=== PATIENT | male | born 1975 | race Caucasian/White ===

== ENCOUNTER → 2022-02-26 09:25 | Outpatient (CLI) | payer OTHER, SELFPAY ==
[2022-02-26 09:58] LABS: Add Manual Diff / Slide Review NO; Basophils Absolute Auto 100 /uL (0-100); Eosinophils Absolute Auto 200 /uL (0-450); Eosinophils Percent Auto 2.8 % (2-4); Hematocrit 35.3 % (41-53); Hemoglobin 11.5 g/dL (13.5-17.5); Lymphocytes Absolute Auto 2400 /uL (1100-4500); Lymphocytes Percent Auto 32.5 % (25-40); Mean Corpuscular HGB Conc 32.7 % (30-36); Mean Corpuscular Hemoglobin 24.9 PG (26-34); Mean Corpuscular Volume 76.2 fL (80-100); Monocytes Absolute Auto 600 /uL (0-900); Monocytes Percent Auto 7.3 % (3-14); Neutrophils Absolute Auto 4200 /uL (1500-7000); Neutrophils Percent Auto 56.4 % (50-75); Platelet Count 287 X10^3/uL (150-400); Red Blood Cell Count 4.63 X10^6/uL (4.5-5.9); Red Cell Distribution Width 16.2 % (11.6-14.8); White Blood Cell Count 7.5 X10^3/uL (4.5-11.0)
[2022-02-26 10:01] LABS: Appearance Urine UA CLEAR; Bilirubin Urine UA NEGATIVE (NEGATIVE); Color Urine UA YELLOW; Glucose Urine UA NEGATIVE (Negative); Ketones Urine UA NEGATIVE (NEGATIVE); Leukocyte Esterase Urine UA NEGATIVE (NEGATIVE); Nitrite Urine UA NEGATIVE (Negative); Occult Blood Urine UA NEGATIVE (Negative); Protein Urine UA NEGATIVE (Negative); Urobilinogen Urine UA 0.2 E.U./dL (0.2)
[2022-02-26 10:05] LABS: Hemoglobin A1C% w Est Avg Glu 6.4 % (4.0-6.0)
[2022-02-26 10:06] LABS: BUN Creatinine Ratio 12.7 (6-22); Blood Urea Nitrogen 13 mg/dL (9-20); Calcium 9.6 mg/dL (8.4-10.2); Carbon Dioxide 35 mmol/L (22-32); Chloride 103 mmol/L (98-107); Estimated Glomerular Filt Rate > 60 mL/min (>60); Glucose 96 mg/dL (70-100); HEMOLYSIS < 15 (0-50); Potassium 4.4 mmol/L (3.4-5.1); Sodium 142 mmol/L (137-145)
[2022-02-26 10:21] LABS: Bacteria Urine Occasional (0-1); Culture Indicated Urine Cult Not Indicated; RBC Urine None Seen (0-5/HPF); Squamous Epithelial Cell Urine 0-1 /HPF (0-5/HPF); WBC Urine None Seen (0-5/HPF)
== END ==
PROVIDERS: Referring Provider Orthopaedic Surgery; Visit Provider Orthopaedic Surgery
DX: Z01.818 Encounter for other preprocedural examination (principal); Z01.812 Encounter for preprocedural laboratory examination; R73.9 Hyperglycemia, unspecified; N39.0 Urinary tract infection, site not specified
CPT/HCPCS: 36415; 80048; 81001; 83036; 85025; 93005; 93010

== ENCOUNTER → 2022-03-19 11:56 | Outpatient (CLI) | payer OTHER, SELFPAY ==
[2022-03-19 12:49] LABS: Appearance Urine UA CLEAR; Bilirubin Urine UA NEGATIVE (NEGATIVE); Color Urine UA YELLOW; Glucose Urine UA NEGATIVE (Negative); Ketones Urine UA NEGATIVE (NEGATIVE); Leukocyte Esterase Urine UA NEGATIVE (NEGATIVE); Nitrite Urine UA NEGATIVE (Negative); Occult Blood Urine UA NEGATIVE (Negative); Protein Urine UA NEGATIVE (Negative); Specific Gravity Urine UA <=1.005 (1.000-1.035); Urobilinogen Urine UA 0.2 E.U./dL (0.2); pH Urine UA 5.5 (4.5-8.0)
[2022-03-19 13:27] LABS: Bacteria Urine None Seen; Culture Indicated Urine Cult Not Indicated; RBC Urine None Seen (0-5/HPF); Squamous Epithelial Cell Urine None Seen (0-5/HPF); WBC Urine 0-1/HPF (0-5/HPF)
[2022-03-19 13:30] LABS: Add Manual Diff / Slide Review NO; Basophils Absolute Auto 100 /uL (0-100); Basophils Percent Auto 0.5 % (0-2); Eosinophils Absolute Auto 100 /uL (0-450); Eosinophils Percent Auto 0.5 % (2-4); Hematocrit 26.7 % (41-53); Hemoglobin 8.5 g/dL (13.5-17.5); Lymphocytes Absolute Auto 3900 /uL (1100-4500); Lymphocytes Percent Auto 24.2 % (25-40); Mean Corpuscular HGB Conc 31.9 % (30-36); Mean Corpuscular Hemoglobin 24.2 PG (26-34); Mean Corpuscular Volume 75.8 fL (80-100); Monocytes Absolute Auto 1800 /uL (0-900); Monocytes Percent Auto 10.9 % (3-14); Neutrophils Absolute Auto 10400 /uL (1500-7000); Neutrophils Percent Auto 63.9 % (50-75); Platelet Count 342 X10^3/uL (150-400); Red Blood Cell Count 3.52 X10^6/uL (4.5-5.9); Red Cell Distribution Width 15.8 % (11.6-14.8); White Blood Cell Count 16.3 X10^3/uL (4.5-11.0)
== END ==
PROVIDERS: Referring Provider Orthopaedic Surgery; Visit Provider Orthopaedic Surgery
DX: Z96.651 Presence of right artificial knee joint (principal)
CPT/HCPCS: 36415; 81001; 85025

== ENCOUNTER 2022-03-29 14:15 | Inpatient (IN) | payer OTHER, SELFPAY ==
[2022-03-29] VITALS (13 sets, daily range): BP systolic 97–135; BP diastolic 57–74; PULSE 67–91; RESP 16–19; TEMP 36.5–37.7; O2SAT 94–98; BMI 30.3
--- NOTE | 2022-03-29 14:32 | DI.RAD.S_ITS ---
PROCEDURE: XR CHEST 1V INDICATIONS: suspected sepsis TECHNIQUE: One view of the chest was acquired. COMPARISON: None. FINDINGS: Surgical changes and devices: None. Lungs and pleura: An incomplete inspiratory result is noted, causing a crowded appearance to the lung markings. No focal infiltrates are seen. No pneumothorax or significant pleural effusions are seen. Mediastinum: Mediastinal contours appear normal. Heart size is normal. Bones and chest wall: No suspicious bony lesions. Overlying soft tissues appear unremarkable. IMPRESSION: Low lung volumes, without an acute abnormality seen. Dictated by: Johnathan Lacy M.D. on 03/29/2022 at 14:10 Approved by: Johnathan Lacy M.D. on 03/29/2022 at 14:11
--- NOTE | 2022-03-29 14:41 | ED.SOB ---
HPI - SOB/Dyspnea <BEBE Louis - Last Filed: 03/29/22 18:25> General Chief Complaint: Shortness of Breath/Dyspnea Stated Complaint: SOB, anemia, Poss PE- ref by Inga Danielle Time Seen by Provider: 03/29/22 14:40 Source: patient and family Mode of arrival: Wheelchair Limitations: no limitations History of Present Illness HPI Narrative: 46-year-old male, never smoker, presents emergency department with fever, right leg pain and swelling, fatigue and difficulty catching his breath x2 weeks. History of a total right knee replacement on March 17 at a surgery center and was sent home that evening. Patient developed a fever of 102.8 that night that goes down to 101? with Tylenol. Patient had his knee drained the following Thursday, March 21, and then went into the emergency department shortly afterwards where he was placed on cephalexin IV and oral. Patient was placed on Xarelto for 10 days post surgery. Patient is on day 3 without the blood thinner. Patient has had a persistent fever and fatigue ever since the surgery. Per patient's spouse, history of bariatric surgery and previous need for blood transfusions. Patient does report that his stools have been dark for at least the last 3 weeks. Patient is pale and warm. Related Data Home Medications Medication Instructions Recorded Confirmed baclofen 20 mg tablet 20 mg PO QID 03/29/22 03/29/22 clonazepam 1 mg tablet 0.5 mg PO DAILY PRN Anxiety 03/29/22 03/29/22 fluconazole 100 mg tablet 200 mg PO DAILY 03/29/22 03/29/22 lamotrigine 100 mg tablet 250 mg PO DAILY 03/29/22 03/29/22 mirtazapine 30 mg tablet 30 mg PO DAILY 03/29/22 03/29/22 pantoprazole 20 mg tablet,delayed 20 mg PO DAILY 03/29/22 03/29/22 release paroxetine HCl 40 mg tablet 60 mg PO DAILY 03/29/22 03/29/22 quetiapine 25 mg tablet 25 mg PO BEDTIME 03/29/22 03/29/22 tamsulosin 0.4 mg capsule (Flomax) 0.4 mg PO DAILY 03/29/22 03/29/22 tizanidine 4 mg capsule 4 mg PO Q6HR PRN Pain (Scale Score 03/29/22 03/29/22 1-3) Allergies Allergy/AdvReac Type Severity Reaction Status Date / Time ketamine Allergy Verified 03/29/22 14:31 NSAIDS (Non-Steroidal Allergy Verified 03/29/22 14:31 Anti-Inflamma Review of Systems <BEBE Louis - Last Filed: 03/29/22 18:25> Review of Systems Narrative: Narrative: GENERAL: Endorses chills, fatigue, fever. See HPI HEENT: Denies sinus pain, ear pain, sore throat, difficulty swallowing, dizziness. RESPIRATORY: Denies cough, wheezing, sputum. Endorses shortness of breath when ambulating. CARDIOVASCULAR: Denies chest pain, palpitations. GASTROINTESTINAL: Denies nausea, vomiting, abdominal pain, diarrhea, constipation. : Denies dysuria, frequency, incontinence, hematuria, urinary retention, flank pain. MSK: Denies weakness, joint pain, or bony pain. SKIN: Denies rash, skin lesions, or pruritis. Endorses swelling of right leg. NEUROLOGIC: Denies weakness, dizziness, headache, numbness, confusion. PSYCHIATRIC: No concerning psychosocial issues. Patient History <BEBE Louis - Last Filed: 03/29/22 18:25> Medical History (Updated 03/29/22 @ 17:46 by Destini Noyola MD) Osteoarthritis Prediabetes Surgical History (Updated 03/29/22 @ 17:46 by Destini Noyola MD) History of arthroplasty of knee Social History household members: spouse Smoking Status: Never smoker alcohol intake: never Smoking Status: Never smoker Exam <BEBE Louis - Last Filed: 03/29/22 18:25> Narrative Exam Narrative: Exam Narrative: GENERAL: This is a well-nourished, well-developed patient, in mild distress HEAD: Atraumatic. Normocephalic. EYES: Pupils equal round and reactive. Extraocular motions intact. No scleral icterus, injection or drainage. ENT: Nose without bleeding, purulent drainage. Throat without erythema, tonsillar hypertrophy or exudate. Airway patent. NECK: Trachea midline. No JVD or lymphadenopathy. Nontender. CARDIOVASCULAR: Regular rate and rhythm without murmurs, peripheral pulses intact, cap refill <2 sec. RESPIRATORY: Breath sounds equal and clear bilaterally. No wheezes, rales, or rhonchi. No cough. No increased respiratory effort. No accessory muscle use. GASTROINTESTINAL: Abdomen soft, non-tender, nondistended without guarding or rebound. No suprapubic pain. MSK: Moves all extremities. Normal range of motion, no clubbing or edema. Neurovascularly intact. NEURO: A&O x 3. SKIN: Warm, dry. Seven inch surgical scar across the right knee status post total right knee replacement that is very warm but with no redness, red streaking or drainage. Initial Vital Signs Initial Vital Signs: Vital Signs Temperature 99.8 F H 03/29/22 14:25 Pulse Rate 86 03/29/22 14:25 Respiratory Rate 18 03/29/22 14:25 Blood Pressure 122/66 03/29/22 14:25 Pulse Oximetry 98 03/29/22 14:25 Oxygen Delivery Method 03/29/22 14:25 Reviewed <Louisa Serna DO - Last Filed: 03/29/22 19:46> Initial Vital Signs Initial Vital Signs: Vital Signs Temperature 99.8 F H 03/29/22 14:25 Pulse Rate 86 03/29/22 14:25 Respiratory Rate 18 03/29/22 14:25 Blood Pressure 122/66 03/29/22 14:25 Pulse Oximetry 98 03/29/22 14:25 Oxygen Delivery Method 03/29/22 14:25 Procedures <BEBE Louis - Last Filed: 03/29/22 18:25> Stool Hemoccult Time of procedure: 17:10 Hemoccult result: negative Additional Comments: via [facility] Course <BEBE Louis - Last Filed: 03/29/22 18:25> Orders Ordered: ED Orders 03/29/22 14:32 XR chest 1V Stat EKG-12 Lead Stat 03/29/22 14:54 Complete Blood Count AUTO DIFF Stat Comprehensive Metabolic Panel Stat Lactate (Lactic Acid) Stat Lipase Stat Partial Thromboplastin Time Stat Procalcitonin Stat Prothrombin Time INR Stat Type and Screen Stat transfuse [Packed Cells] Stat 03/29/22 15:16 US periph venous low extrem rt Stat 03/29/22 15:28 BNP [NT-proBNP (BNP-Adult 18+)] Stat Blood Culture Stat Troponin & CK Cardiac Panel Stat 03/29/22 15:51 COVID19 -Nasal RAPID/Pre-Proc Stat 03/29/22 17:05 CT angio chest PE protocol Stat 03/29/22 17:57 Consult to Physical Therapy Evaluate & Treat Education, smoking cessation ONGOING 03/29/22 18:39 Urinalysis and Microscopic Stat 03/30/22 05:00 Basic Metabolic Panel Routine Complete Blood Count AUTO DIFF Routine Acetaminophen (Acetaminophen 325 Mg Tablet) 650 mg PO Q6HR PRN PRN Reason: Fever/Mild Pain (1-3) Baclofen (Baclofen 10 Mg Tablet) 20 mg PO QID DONAVAN Clonazepam (Clonazepam 0.5 Mg Tablet) 0.5 mg PO DAILY PRN PRN Reason: Anxiety Fluconazole (Fluconazole 100 Mg Tablet) 200 mg PO DAILY DONAVAN Lamotrigine (Lamotrigine 100 Mg Tablet) 250 mg PO DAILY DONAVAN Mirtazapine (Mirtazapine 15 Mg Tablet) 30 mg PO DAILY DONAVAN Pantoprazole Sodium (Pantoprazole Dr 20 Mg Tablet) 20 mg PO DAILY DONAVAN Paroxetine HCl (Paroxetine 20 Mg Tablet) 60 mg PO DAILY DONAVAN Quetiapine Fumarate (Quetiapine 25 Mg Tablet) 25 mg PO BEDTIME DONAVAN Tamsulosin HCl (Tamsulosin 0.4 Mg Capsule) 0.4 mg PO DAILY DONAVAN Tizanidine HCl (Tizanidine 4 Mg Tablet) 4 mg PO Q6HR PRN PRN Reason: Pain (Scale Score 1-3) Discontinued Medications Hydromorphone HCl (Hydromorphone 1 Mg Inj) 1 mg IV NOW ONE Stop: 03/29/22 16:27 Last Admin: 03/29/22 16:32 Dose: 1 mg Documented By: AT Sodium Chloride (Normal Saline 0.9%) 1,000 mls @ 1,000 mls/hr IV BOLUS ONE Stop: 03/29/22 15:31 Last Infusion: 03/29/22 16:41 Dose: 0 mls/hr Documented By: Admin: 03/29/22 15:35 Dose: 1,000 mls/hr Documented By: KF Consultations Consultation #1: Dr. Noyola, hospitalist. Recommended we speak with Orthopedics to see if they can obtain culture results from [facility]. After discussion with Dr. Stevens, Dr. Noyola was agreeable to admission for symptomatic anemia. Consultation #2: Dr. Stevens, orthopedics, was able to pull up most recent knee culture that showed negative growth. Recommended she be admitted for symptomatic anemia. Vital Signs Vital signs: Vital Signs - 8 hr 03/29/22 14:25 03/29/22 15:08 03/29/22 15:10 Temperature 99.8 F H Pulse Rate 86 78 72 Respiratory Rate 18 16 Blood Pressure 122/66 Pulse Oximetry 98 96 95 Oxygen Delivery Method Room Air 03/29/22 15:10 03/29/22 15:30 03/29/22 16:00 Temperature Pulse Rate 76 78 Respiratory Rate 18 18 Blood Pressure 120/70 Pulse Oximetry 97 97 Oxygen Delivery Method 03/29/22 16:30 03/29/22 16:37 03/29/22 16:37 Temperature Pulse Rate 72 80 Respiratory Rate 19 18 Blood Pressure 131/74 Pulse Oximetry 94 96 Oxygen Delivery Method 03/29/22 17:00 03/29/22 17:30 Temperature Pulse Rate 78 73 Respiratory Rate 18 18 Blood Pressure Pulse Oximetry 95 94 Oxygen Delivery Method <Louisa Serna, - Last Filed: 03/29/22 19:46> Orders Ordered: ED Orders 03/29/22 14:32 XR chest 1V Stat EKG-12 Lead Stat 03/29/22 14:54 Complete Blood Count AUTO DIFF Stat Comprehensive Metabolic Panel Stat Lactate (Lactic Acid) Stat Lipase Stat Partial Thromboplastin Time Stat Procalcitonin Stat Prothrombin Time INR Stat Type and Screen Stat transfuse [Packed Cells] Stat 03/29/22 15:16 US periph venous low extrem rt Stat 03/29/22 15:28 BNP [NT-proBNP (BNP-Adult 18+)] Stat Blood Culture Stat Troponin & CK Cardiac Panel Stat 03/29/22 15:51 COVID19 -Nasal RAPID/Pre-Proc Stat 03/29/22 17:05 CT angio chest PE protocol Stat 03/29/22 17:57 Consult to Physical Therapy Evaluate & Treat Education, smoking cessation ONGOING 03/29/22 18:39 Urinalysis and Microscopic Stat 03/30/22 05:00 Basic Metabolic Panel Routine Complete Blood Count AUTO DIFF Routine Acetaminophen (Acetaminophen 325 Mg Tablet) 650 mg PO Q6HR PRN PRN Reason: Fever/Mild Pain (1-3) Baclofen (Baclofen 10 Mg Tablet) 20 mg PO QID DONAVAN Clonazepam (Clonazepam 0.5 Mg Tablet) 0.5 mg PO DAILY PRN PRN Reason: Anxiety Fluconazole (Fluconazole 100 Mg Tablet) 200 mg PO DAILY DONAAVN Lamotrigine (Lamotrigine 100 Mg Tablet) 250 mg PO DAILY DONAVAN Mirtazapine (Mirtazapine 15 Mg Tablet) 30 mg PO DAILY DONAVAN Pantoprazole Sodium (Pantoprazole Dr 20 Mg Tablet) 20 mg PO DAILY DONAVAN Paroxetine HCl (Paroxetine 20 Mg Tablet) 60 mg PO DAILY DONAVAN Quetiapine Fumarate (Quetiapine 25 Mg Tablet) 25 mg PO BEDTIME DONAVAN Tamsulosin HCl (Tamsulosin 0.4 Mg Capsule) 0.4 mg PO DAILY DONAVAN Tizanidine HCl (Tizanidine 4 Mg Tablet) 4 mg PO Q6HR PRN PRN Reason: Pain (Scale Score 1-3) Discontinued Medications Hydromorphone HCl (Hydromorphone 1 Mg Inj) 1 mg IV NOW ONE Stop: 03/29/22 16:27 Last Admin: 03/29/22 16:32 Dose: 1 mg Documented By: AT Sodium Chloride (Normal Saline 0.9%) 1,000 mls @ 1,000 mls/hr IV BOLUS ONE Stop: 03/29/22 15:31 Last Infusion: 03/29/22 16:41 Dose: 0 mls/hr Documented By: Admin: 03/29/22 15:35 Dose: 1,000 mls/hr Documented By: KF Vital Signs Vital signs: Vital Signs - 8 hr 03/29/22 14:25 03/29/22 15:08 03/29/22 15:10 Temperature 99.8 F H Pulse Rate 86 78 72 Respiratory Rate 18 16 Blood Pressure 122/66 Pulse Oximetry 98 96 95 Oxygen Delivery Method Room Air 03/29/22 15:10 03/29/22 15:30 03/29/22 16:00 Temperature Pulse Rate 76 78 Respiratory Rate 18 18 Blood Pressure 120/70 Pulse Oximetry 97 97 Oxygen Delivery Method 03/29/22 16:30 03/29/22 16:37 03/29/22 16:37 Temperature Pulse Rate 72 80 Respiratory Rate 19 18 Blood Pressure 131/74 Pulse Oximetry 94 96 Oxygen Delivery Method 03/29/22 17:00 03/29/22 17:30 Temperature Pulse Rate 78 73 Respiratory Rate 18 18 Blood Pressure Pulse Oximetry 95 94 Oxygen Delivery Method MDM - SOB/Dyspnea <BEBE Louis - Last Filed: 03/29/22 18:25> Differential Diagnosis Differential diagnosis: Likely other (PE, DVT, postoperative infection, symptomatic anemia) Lab Data Result diagrams: 03/29/22 14:54 03/29/22 14:54 Labs: Lab Results 03/29/22 03/29/22 03/29/22 Range/Units 14:54 14:54 14:54 WBC 10.9 (4.5-11.0) X10^3/uL RBC 2.99 L (4.5-5.9) X10^6/uL Hgb 7.1 L (13.5-17.5) g/dL Hct 22.3 L (41-53) % MCV 74.7 L (80-100) fL MCH 23.7 L (26-34) PG MCHC 31.8 (30-36) % RDW 15.9 H (11.6-14.8) % Plt Count 817 H (150-400) X10^3/uL Neut % (Auto) 70.5 (50-75) % Lymph % (Auto) 20.4 L (25-40) % [place] % (Auto) 6.6 (3-14) % Eos % (Auto) 1.7 L (2-4) % Baso % (Auto) 0.8 (0-2) % Neut # (Auto) 7700 H (3652-1343) /uL Lymph # (Auto) 2200 (2473-6722) /uL [place] # (Auto) 700 (0-900) /uL Eos # (Auto) 200 (0-450) /uL Baso # (Auto) 100 (0-100) /uL Platelet Estimate Increased on smear RBC Morphology Not Reportable Hypochromasia 1+ H Anisocytosis 1+ H Microcytosis 1+ H PT (10.1-12.7) SECONDS INR (0.9-1.3) APTT (26.4-36.2) SECONDS Sodium 139 (137-145) mmol/L Potassium 3.6 (3.4-5.1) mmol/L Chloride 97 L (98-107) mmol/L Carbon Dioxide 35 H (22-32) mmol/L BUN 8 L (9-20) mg/dL Creatinine 0.98 (0.66-1.25) mg/dL Estimated GFR > 60 (>60) mL/min BUN/Creatinine Ratio 8.2 (6-22) Glucose 122 H (70-100) mg/dL Lactate 1.1 (0.7-2.1) mmol/L Calcium 8.4 (8.4-10.2) mg/dL Total Bilirubin 0.2 (0.2-1.3) mg/dL AST 26 (17-59) IU/L ALT 12 (<50) IU/L Alkaline Phosphatase 118 (38-126) U/L Total Creatine Kinase (55-170) U/L CK-MB (CK-2) CK-MB (CK-2) Rel Index Troponin I (0.01-0.034) ng/mL NT-Pro-B Natriuret Pep (<125) pg/mL Total Protein 6.9 (6.3-8.2) g/dL Albumin 3.7 (3.5-5.0) g/dL Globulin 3.2 (1.7-4.1) g/dL Albumin/Globulin Ratio 1.2 (1.0-2.8) Lipase 130 (23-300) U/L Procalcitonin 0.06 (<0.5) ng/mL SARS-CoV-2 (PCR) (Negative) Blood Type Antibody Screen Crossmatch 03/29/22 03/29/22 03/29/22 Range/Units 14:54 14:54 15:28 WBC (4.5-11.0) X10^3/uL RBC (4.5-5.9) X10^6/uL Hgb (13.5-17.5) g/dL Hct (41-53) % MCV (80-100) fL MCH (26-34) PG MCHC (30-36) % RDW (11.6-14.8) % Plt Count (150-400) X10^3/uL Neut % (Auto) (50-75) % Lymph % (Auto) (25-40) % [place] % (Auto) (3-14) % Eos % (Auto) (2-4) % Baso % (Auto) (0-2) % Neut # (Auto) (8597-9169) /uL Lymph # (Auto) (7318-6575) /uL [place] # (Auto) (0-900) /uL Eos # (Auto) (0-450) /uL Baso # (Auto) (0-100) /uL Platelet Estimate RBC Morphology Hypochromasia Anisocytosis Microcytosis PT 13.0 H (10.1-12.7) SECONDS INR 1.2 (0.9-1.3) APTT 41 H (26.4-36.2) SECONDS Sodium (137-145) mmol/L Potassium (3.4-5.1) mmol/L Chloride (98-107) mmol/L Carbon Dioxide (22-32) mmol/L BUN (9-20) mg/dL Creatinine (0.66-1.25) mg/dL Estimated GFR (>60) mL/min BUN/Creatinine Ratio (6-22) Glucose (70-100) mg/dL Lactate (0.7-2.1) mmol/L Calcium (8.4-10.2) mg/dL Total Bilirubin (0.2-1.3) mg/dL AST (17-59) IU/L ALT (<50) IU/L Alkaline Phosphatase (38-126) U/L Total Creatine Kinase 95 (55-170) U/L CK-MB (CK-2) TNP CK-MB (CK-2) Rel Index TNP Troponin I < 0.012 (0.01-0.034) ng/mL NT-Pro-B Natriuret Pep 575 H (<125) pg/mL Total Protein (6.3-8.2) g/dL Albumin (3.5-5.0) g/dL Globulin (1.7-4.1) g/dL Albumin/Globulin Ratio (1.0-2.8) Lipase (23-300) U/L Procalcitonin (<0.5) ng/mL SARS-CoV-2 (PCR) (Negative) Blood Type A Positive Antibody Screen Negative Crossmatch See Detail 03/29/22 Range/Units 15:51 WBC (4.5-11.0) X10^3/uL RBC (4.5-5.9) X10^6/uL Hgb (13.5-17.5) g/dL Hct (41-53) % MCV (80-100) fL MCH (26-34) PG MCHC (30-36) % RDW (11.6-14.8) % Plt Count (150-400) X10^3/uL Neut % (Auto) (50-75) % Lymph % (Auto) (25-40) % [place] % (Auto) (3-14) % Eos % (Auto) (2-4) % Baso % (Auto) (0-2) % Neut # (Auto) (5003-0069) /uL Lymph # (Auto) (2906-9249) /uL [place] # (Auto) (0-900) /uL Eos # (Auto) (0-450) /uL Baso # (Auto) (0-100) /uL Platelet Estimate RBC Morphology Hypochromasia Anisocytosis Microcytosis PT (10.1-12.7) SECONDS INR (0.9-1.3) APTT (26.4-36.2) SECONDS Sodium (137-145) mmol/L Potassium (3.4-5.1) mmol/L Chloride (98-107) mmol/L Carbon Dioxide (22-32) mmol/L BUN (9-20) mg/dL Creatinine (0.66-1.25) mg/dL Estimated GFR (>60) mL/min BUN/Creatinine Ratio (6-22) Glucose (70-100) mg/dL Lactate (0.7-2.1) mmol/L Calcium (8.4-10.2) mg/dL Total Bilirubin (0.2-1.3) mg/dL AST (17-59) IU/L ALT (<50) IU/L Alkaline Phosphatase (38-126) U/L Total Creatine Kinase (55-170) U/L CK-MB (CK-2) CK-MB (CK-2) Rel Index Troponin I (0.01-0.034) ng/mL NT-Pro-B Natriuret Pep (<125) pg/mL Total Protein (6.3-8.2) g/dL Albumin (3.5-5.0) g/dL Globulin (1.7-4.1) g/dL Albumin/Globulin Ratio (1.0-2.8) Lipase (23-300) U/L Procalcitonin (<0.5) ng/mL SARS-CoV-2 (PCR) Negative (Negative) Blood Type Antibody Screen Crossmatch Imaging Data US - DVT: Radiologist's Impression: [address] [address] Ultrasound Report Signed Patient: Lefty Valerio MR#: [id number] : 1975 Acct:[id number] Age/Sex: 46 / M Date of Service: 03/29/22 Loc: ED Accession Number: [id number] ?? Procedure: US periph venous low extrem rt Ordering Provider: Romeo Tony PROCEDURE:? US PERIPH VENOUS LOW EXTREM RT ? INDICATIONS:? r/o dvt. Hx of total knee replacement. ? TECHNIQUE:? Real-time imaging, as well as color and pulse Doppler interrogation, were performed of the lower extremity deep veins from the inguinal ligament to the popliteal fossa.? ? COMPARISON:? [facility], CR, XR CHEST 1V, 03/29/2022, 14:35.? [facility] Outside Film, US, US VENOUS LOWER EXTREMITY DOPPLER RIGHT, 03/22/2022, 12:04. ? FINDINGS:? The common femoral, femoral and popliteal veins are normally compressible, and free of intraluminal thrombus.? Color and pulse Doppler demonstrate normal phasic intraluminal flow.? There is normal augmentation response to distal compression maneuver. ? ? IMPRESSION:? ? Negative for deep venous thrombosis. ? ? Dictated by: Johnathan Lacy M.D. on 03/29/2022 at 15:53 ? ? Approved by: Johnathan Lacy M.D. on 03/29/2022 at 15:54 ? Chest x-ray: Radiologist's Impression: [address] [address] XRay Report Signed Patient: Lefty Valerio MR#: [id number] : 1975 Acct:[id number] Age/Sex: 46 / M Date of Service: 03/29/22 Loc: ED Accession Number: [id number] ?? Procedure: XR chest 1V Ordering Provider: Louisa Serna D.O. PROCEDURE:? XR CHEST 1V ? INDICATIONS:? suspected sepsis ? TECHNIQUE:? One view of the chest was acquired.? ? COMPARISON:? None. ? FINDINGS:? ? Surgical changes and devices:? None.? ? Lungs and pleura:? An incomplete inspiratory result is noted, causing a crowded appearance to the lung markings.? No focal infiltrates are seen.? No pneumothorax or significant pleural effusions are seen. ? ? Mediastinum:? Mediastinal contours appear normal.? Heart size is normal.? ? Bones and chest wall:? No suspicious bony lesions.? Overlying soft tissues appear unremarkable.? IMPRESSION:? Low lung volumes, without an acute abnormality seen. ? ? Dictated by: Johnathan Lacy M.D. on 03/29/2022 at 14:10 ? ? Approved by: Johnathan Lacy M.D. on 03/29/2022 at 14:11 ? ECG Data Attestation: I personally reviewed and interpreted this ECG as follows: Interpretation: NSR Rate of 73 Normal [place] intervals MDM Narrative Medical decision making narrative: 46-year-old male presents emergency department with right leg pain and swelling secondary to a total knee replacement on March 17. Patient has been experiencing fevers and difficulty breathing with exertion ever since. Chest x-ray was normal. Ultrasound of right leg to rule out DVT was negative. Labs reveal anemai and elevated PT/PTT. Patient reports dark stools x3 weeks and has just completed 10 days of Xarelto, postoperatively, 3 days ago. Guaiac was negative. Patient was given 1 mg of Dilaudid to aid in the discomfort for the ultrasound. Consultation with Dr. Stevens of Orthopedics and Dr. Noyola, hospitalist. CTA ordered to rule out PE and patient to be admitted for symptomatic anemia. <Louisa Serna, DO - Last Filed: 03/29/22 19:46> Lab Data Labs: Lab Results 03/29/22 03/29/22 03/29/22 Range/Units 14:54 14:54 14:54 WBC 10.9 (4.5-11.0) X10^3/uL RBC 2.99 L (4.5-5.9) X10^6/uL Hgb 7.1 L (13.5-17.5) g/dL Hct 22.3 L (41-53) % MCV 74.7 L (80-100) fL MCH 23.7 L (26-34) PG MCHC 31.8 (30-36) % RDW 15.9 H (11.6-14.8) % Plt Count 817 H (150-400) X10^3/uL Neut % (Auto) 70.5 (50-75) % Lymph % (Auto) 20.4 L (25-40) % [place] % (Auto) 6.6 (3-14) % Eos % (Auto) 1.7 L (2-4) % Baso % (Auto) 0.8 (0-2) % Neut # (Auto) 7700 H (3431-6933) /uL Lymph # (Auto) 2200 (0904-4278) /uL [place] # (Auto) 700 (0-900) /uL Eos # (Auto) 200 (0-450) /uL Baso # (Auto) 100 (0-100) /uL Platelet Estimate Increased on smear RBC Morphology Not Reportable Hypochromasia 1+ H Anisocytosis 1+ H Microcytosis 1+ H PT (10.1-12.7) SECONDS INR (0.9-1.3) APTT (26.4-36.2) SECONDS Sodium 139 (137-145) mmol/L Potassium 3.6 (3.4-5.1) mmol/L Chloride 97 L (98-107) mmol/L Carbon Dioxide 35 H (22-32) mmol/L BUN 8 L (9-20) mg/dL Creatinine 0.98 (0.66-1.25) mg/dL Estimated GFR > 60 (>60) mL/min BUN/Creatinine Ratio 8.2 (6-22) Glucose 122 H (70-100) mg/dL Lactate 1.1 (0.7-2.1) mmol/L Calcium 8.4 (8.4-10.2) mg/dL Total Bilirubin 0.2 (0.2-1.3) mg/dL AST 26 (17-59) IU/L ALT 12 (<50) IU/L Alkaline Phosphatase 118 (38-126) U/L Total Creatine Kinase (55-170) U/L CK-MB (CK-2) CK-MB (CK-2) Rel Index Troponin I (0.01-0.034) ng/mL NT-Pro-B Natriuret Pep (<125) pg/mL Total Protein 6.9 (6.3-8.2) g/dL Albumin 3.7 (3.5-5.0) g/dL Globulin 3.2 (1.7-4.1) g/dL Albumin/Globulin Ratio 1.2 (1.0-2.8) Lipase 130 (23-300) U/L Procalcitonin 0.06 (<0.5) ng/mL SARS-CoV-2 (PCR) (Negative) Blood Type Antibody Screen Crossmatch 03/29/22 03/29/22 03/29/22 Range/Units 14:54 14:54 15:28 WBC (4.5-11.0) X10^3/uL RBC (4.5-5.9) X10^6/uL Hgb (13.5-17.5) g/dL Hct (41-53) % MCV (80-100) fL MCH (26-34) PG MCHC (30-36) % RDW (11.6-14.8) % Plt Count (150-400) X10^3/uL Neut % (Auto) (50-75) % Lymph % (Auto) (25-40) % [place] % (Auto) (3-14) % Eos % (Auto) (2-4) % Baso % (Auto) (0-2) % Neut # (Auto) (9844-6690) /uL Lymph # (Auto) (0183-1085) /uL [place] # (Auto) (0-900) /uL Eos # (Auto) (0-450) /uL Baso # (Auto) (0-100) /uL Platelet Estimate RBC Morphology Hypochromasia Anisocytosis Microcytosis PT 13.0 H (10.1-12.7) SECONDS INR 1.2 (0.9-1.3) APTT 41 H (26.4-36.2) SECONDS Sodium (137-145) mmol/L Potassium (3.4-5.1) mmol/L Chloride (98-107) mmol/L Carbon Dioxide (22-32) mmol/L BUN (9-20) mg/dL Creatinine (0.66-1.25) mg/dL Estimated GFR (>60) mL/min BUN/Creatinine Ratio (6-22) Glucose (70-100) mg/dL Lactate (0.7-2.1) mmol/L Calcium (8.4-10.2) mg/dL Total Bilirubin (0.2-1.3) mg/dL AST (17-59) IU/L ALT (<50) IU/L Alkaline Phosphatase (38-126) U/L Total Creatine Kinase 95 (55-170) U/L CK-MB (CK-2) TNP CK-MB (CK-2) Rel Index TNP Troponin I < 0.012 (0.01-0.034) ng/mL NT-Pro-B Natriuret Pep 575 H (<125) pg/mL Total Protein (6.3-8.2) g/dL Albumin (3.5-5.0) g/dL Globulin (1.7-4.1) g/dL Albumin/Globulin Ratio (1.0-2.8) Lipase (23-300) U/L Procalcitonin (<0.5) ng/mL SARS-CoV-2 (PCR) (Negative) Blood Type A Positive Antibody Screen Negative Crossmatch See Detail 03/29/22 Range/Units 15:51 WBC (4.5-11.0) X10^3/uL RBC (4.5-5.9) X10^6/uL Hgb (13.5-17.5) g/dL Hct (41-53) % MCV (80-100) fL MCH (26-34) PG MCHC (30-36) % RDW (11.6-14.8) % Plt Count (150-400) X10^3/uL Neut % (Auto) (50-75) % Lymph % (Auto) (25-40) % [place] % (Auto) (3-14) % Eos % (Auto) (2-4) % Baso % (Auto) (0-2) % Neut # (Auto) (0472-6198) /uL Lymph # (Auto) (3944-7109) /uL [place] # (Auto) (0-900) /uL Eos # (Auto) (0-450) /uL Baso # (Auto) (0-100) /uL Platelet Estimate RBC Morphology Hypochromasia Anisocytosis Microcytosis PT (10.1-12.7) SECONDS INR (0.9-1.3) APTT (26.4-36.2) SECONDS Sodium (137-145) mmol/L Potassium (3.4-5.1) mmol/L Chloride (98-107) mmol/L Carbon Dioxide (22-32) mmol/L BUN (9-20) mg/dL Creatinine (0.66-1.25) mg/dL Estimated GFR (>60) mL/min BUN/Creatinine Ratio (6-22) Glucose (70-100) mg/dL Lactate (0.7-2.1) mmol/L Calcium (8.4-10.2) mg/dL Total Bilirubin (0.2-1.3) mg/dL AST (17-59) IU/L ALT (<50) IU/L Alkaline Phosphatase (38-126) U/L Total Creatine Kinase (55-170) U/L CK-MB (CK-2) CK-MB (CK-2) Rel Index Troponin I (0.01-0.034) ng/mL NT-Pro-B Natriuret Pep (<125) pg/mL Total Protein (6.3-8.2) g/dL Albumin (3.5-5.0) g/dL Globulin (1.7-4.1) g/dL Albumin/Globulin Ratio (1.0-2.8) Lipase (23-300) U/L Procalcitonin (<0.5) ng/mL SARS-CoV-2 (PCR) Negative (Negative) Blood Type Antibody Screen Crossmatch ECG Data Interpretation: NSR Rate of 73 Normal [place] intervals Sinus rhythm rate of 73 P 144 QRS 88 QTC 4-5. No acute ST changes appreciated. Discharge Plan Departure Patient Disposition: Admitted As Inpatient Clinical Impression: Dyspnea Admit Date/Time: 03/29/22 17:56 Admit Provider: Destini Noyola <Louisa Serna, DO - Last Filed: 03/29/22 19:46> Cosign ED Attending Cosignature Attestation: Mid-level case was discussed. Patient appears to have potential GI bleed was recently on Xarelto. Also has infection swelling of lower extremity post knee surgery with not improvement on oral antibiotics, DVT ultrasound was obtained is negative. Had been sent by ortho for rule out PE but concern for other multiple medical issues and discussed with hospitalist who is accepts.
--- NOTE | 2022-03-29 15:16 | DI.US.S_ITS ---
PROCEDURE: US PERIPH VENOUS LOW EXTREM RT INDICATIONS: r/o dvt. Hx of total knee replacement. TECHNIQUE: Real-time imaging, as well as color and pulse Doppler interrogation, were performed of the lower extremity deep veins from the inguinal ligament to the popliteal fossa. COMPARISON: [facility], CR, XR CHEST 1V, 03/29/2022, 14:35. [facility] Outside Film, US, US VENOUS LOWER EXTREMITY DOPPLER RIGHT, 03/22/2022, 12:04. FINDINGS: The common femoral, femoral and popliteal veins are normally compressible, and free of intraluminal thrombus. Color and pulse Doppler demonstrate normal phasic intraluminal flow. There is normal augmentation response to distal compression maneuver. IMPRESSION: Negative for deep venous thrombosis. Dictated by: Johnathan Lacy M.D. on 03/29/2022 at 15:53 Approved by: Johnathan Lcay M.D. on 03/29/2022 at 15:54
[2022-03-29 15:19] LABS: Basophils Absolute Auto 100 /uL (0-100); Basophils Percent Auto 0.8 % (0-2); Eosinophils Absolute Auto 200 /uL (0-450); Eosinophils Percent Auto 1.7 % (2-4); Hematocrit 22.3 % (41-53); Hemoglobin 7.1 g/dL (13.5-17.5); Lymphocytes Absolute Auto 2200 /uL (1100-4500); Lymphocytes Percent Auto 20.4 % (25-40); Mean Corpuscular HGB Conc 31.8 % (30-36); Mean Corpuscular Hemoglobin 23.7 PG (26-34); Mean Corpuscular Volume 74.7 fL (80-100); Monocytes Absolute Auto 700 /uL (0-900); Monocytes Percent Auto 6.6 % (3-14); Neutrophils Absolute Auto 7700 /uL (1500-7000); Neutrophils Percent Auto 70.5 % (50-75); Platelet Count 817 X10^3/uL (150-400); Red Blood Cell Count 2.99 X10^6/uL (4.5-5.9); Red Cell Distribution Width 15.9 % (11.6-14.8); White Blood Cell Count 10.9 X10^3/uL (4.5-11.0)
[2022-03-29 15:24] LABS: INR 1.2 (0.9-1.3)
[2022-03-29 15:26] LABS: PTT Partial Thromboplastin Tim 41 SECONDS (26.4-36.2)
[2022-03-29 15:27] LABS: Add Manual Diff / Slide Review SLIDE REVIEW
[2022-03-29 15:29] LABS: Alanine Aminotransferase 12 IU/L (<50); Albumin 3.7 g/dL (3.5-5.0); Albumin Globulin Ratio 1.2 (1.0-2.8); Alkaline Phosphatase 118 U/L (38-126); Aspartate Aminotransferase 26 IU/L (17-59); BUN Creatinine Ratio 8.2 (6-22); Bilirubin Total 0.2 mg/dL (0.2-1.3); Blood Urea Nitrogen 8 mg/dL (9-20); Calcium 8.4 mg/dL (8.4-10.2); Carbon Dioxide 35 mmol/L (22-32); Chloride 97 mmol/L (98-107); Estimated Glomerular Filt Rate > 60 mL/min (>60); Globulin 3.2 g/dL (1.7-4.1); Glucose 122 mg/dL (70-100); HEMOLYSIS < 15 (0-50); Lipase 130 U/L (23-300); Potassium 3.6 mmol/L (3.4-5.1); Sodium 139 mmol/L (137-145); Total Protein 6.9 g/dL (6.3-8.2)
[2022-03-29 15:30] LABS: Lactate (Lactic Acid) 1.1 mmol/L (0.7-2.1)
[2022-03-29] MEDS: SODIUM CHLORIDE 0.9% 1,000 ML 1000 ML IV (15:35)
[2022-03-29 15:40] LABS: Hypochromasia 1+; Platelet Estimate Increased on smear
[2022-03-29 15:41] LABS: Anisocytosis 1+; Microcytosis 1+
[2022-03-29 15:46] LABS: Creatine Kinase 95 U/L (55-170)
[2022-03-29 15:46] LABS: Procalcitonin 0.06 ng/mL (<0.5)
[2022-03-29 15:59] LABS: NT-proBNP (BNP-Adult 18+) 575 pg/mL (<125); Troponin I < 0.012 ng/mL (0.01-0.034)
[2022-03-29 16:25] LABS: COVID19 -Nasal RAPID Negative (Negative)
[2022-03-29] MEDS: HYDROMORPHONE 1 MG INJ IV (16:32)
--- NOTE | 2022-03-29 17:05 | DI.CT.S_ITS ---
PROCEDURE: CT ANGIO CHEST PE PROTOCOL INDICATIONS: dyspnea r/o pe TECHNIQUE: After the administration of intravenous contrast, 2 mm thick sections acquired from the pulmonary apices to the posterior costophrenic angles. 3-dimensional maximum intensity projection (MIP) coronal and sagittal reformats were then acquired through the thorax. For radiation dose reduction, the following was used: automated exposure control, adjustment of mA and/or kV according to patient size. COMPARISON: None. FINDINGS: Image quality: Excellent. Pulmonary arteries: Pulmonary arteries are normal in size, and demonstrate no intraluminal filling defects to suggest central pulmonary embolism. Lungs and pleura: Numerous bilateral areas of nodular consolidation and ground-glass airspace opacity consistent with multifocal infection. Mediastinum: Heart size is normal, without pericardial effusion. No mediastinal or hilar adenopathy. Thoracic aorta is normal in caliber and enhancement. Esophagus is normal in caliber, without hiatal hernia. Bones and chest wall: No suspicious bony lesions. Ribs and thoracic spine appear intact throughout. No axillary or supraclavicular adenopathy. Abdomen: Visualized upper abdominal solid organs appear normal in the early arterial phase of enhancement. IMPRESSION: Multifocal pneumonia. No pulmonary embolism. Dictated by: Edmund Wayne M.D. on 03/29/2022 at 20:27 Approved by: Edmund Wayne M.D. on 03/29/2022 at 20:29
--- NOTE | 2022-03-29 17:40 | P.HP_ITS ---
History of Present Illness History of Present Illness Date Patient Seen: 03/29/22 Chief complaint: SOB, anemia, Poss PE- ref by Inga Danielle Narrative: 46-year-old gentleman with class 1 obesity status post prior bariatric surgery, previous C3 through 7 laminectomy/fusion for spinal cord injury, complicated by postop fungal infection now on daily suppressive fluconazole therapy, underwent right TKA on March 17 at an outpatient surgery center presented to the emergency department today complaining of right leg pain, swelling, fatigue, and shortness of breath over the last 2 weeks. He reports that on postoperative day 0, he did develop a fever to 102.8?. He received Tylenol with improvement down to 101?. Due to her previous gastric bypass, he cannot take aspirin, therefore his orthopedic surgeon recommended Xarelto. He states he has previously used Lovenox postoperatively. He has had significant pain, swelling, and warmth to the knee since surgery. He was seen at the [place] emergency department on March 19. He was given IV antibiotics there and given oral Keflex prescription at discharge. They did perform a duplex ultrasound ruled out DVT at that time. Patient subsequently followed up with his Orthopedic surgeon Dr. Danielle on March 27. At time, she performed a joint aspiration. She refilled the Keflex and encouraged him to continue taking the antibiotics. Cultures have remained negative. At the time of that visit, she recommended discontinuation of the Xarelto. At this point, his last dose was on ThursdayMarch 26. When he was seen in her office, there was concern about his symptomatic anemia and potential need for transfusion. Patient and also questioned whether he could have fungal infection in the knee joint given his previous history of fungal infection in his spine hardware. Dr. Danielle was evidently going to look into some additional fungal testing, but they are uncertain if anything was accomplished. He returned to the emergency department today due to progressive shortness of breath, concern for pulmonary embolus, and anemia. Prior to surgery, hemoglobin was 11.5. On March 19 that had decreased to 8.5. Today it was down to 7.1. Platelet count has increased from 342 on March 19 to 817 today. Patient reports he has had progressive fatigue, weakness, and lightheadedness. His knee has remained extremely painful which has limited his ability to mobilize. He and his report he has had fevers since surgery ranging from 99.6-101. Patient notes that his knee is about the same as it was a week ago. He denies any worsening pain, erythema, induration. reports his temperature was 101? today. With regard to anemia, he did require prior transfusion at [facility] in [place] in 2020. Was felt at that time his anemia was related to his prior gastric bypass. Upper endoscopy was negative but they had an inadequate prep for colonoscopy. He was guaiac negative at that time. He was also guaiac- negative in the emergency department today. He denies any black or tarry sto ols. He has not had any chest pain, nausea, vomiting, abdominal pain. He has been having some loose stools. Leading up to surgery, patient states he has had bilateral knee pain for years. He was having falls prior to surgery which was putting his cervical spine at risk. Ultimately, the decision was made to pursue knee replacement secondary to his instability issues in pain. Patient History Medical History (Updated 03/29/22 @ 17:46 by Destini Noyola MD) Osteoarthritis Prediabetes Surgical History (Updated 03/29/22 @ 17:46 by Destini Noyola MD) History of arthroplasty of knee Comment: Additional past medical history: Spinal cord injury in 2019 requiring a C3 through C7 laminectomy/fusion. He developed a postop fungal infection remained hospitalized for 3 and half weeks. He remains on daily suppressive oral fluconazole. He does follow infectious disease Class 3 obesity status post gastric bypass surgery in 2010, complicated by some nutritional deficiencies Chronic anemia felt to be secondary to gastric bypass/nutritional deficiencies Intermittent asthma Osteoarthritis Family & Social History Social History: Family history: Mother and father have diabetes Mother and father have hypertension Other cancer Mother has thyroid disease Social history: Patient is . He is a former smoker, 1 pack per day times 20 years, quit in 2010. No recreational drug use. No significant alcohol use. Safety & Behavioral: Feels Safe in Current Yes Environment Tobacco & Substance use: Smoking Status Never smoker Meds Home Medications and Allergies Allergies Allergy/AdvReac Type Severity Reaction Status Date / Time ketamine Allergy Verified 03/29/22 14:31 NSAIDS (Non-Steroidal Allergy Verified 03/29/22 14:31 Anti-Inflamma Review of Systems Review of Systems Narrative: All other systems were reviewed negative Exam Vital Signs (past 8 hours): - 03/29/22 14:25 03/29/22 15:08 03/29/22 15:10 Temperature 99.8 F H Pulse Rate 86 78 72 Respiratory Rate 18 16 Blood Pressure 122/66 Pulse Oximetry 98 96 95 Oxygen Delivery Method Room Air 03/29/22 15:10 03/29/22 15:30 03/29/22 16:00 Temperature Pulse Rate 76 78 Respiratory Rate 18 18 Blood Pressure 120/70 Pulse Oximetry 97 97 Oxygen Delivery Method 03/29/22 16:30 03/29/22 16:37 03/29/22 16:37 Temperature Pulse Rate 72 80 Respiratory Rate 19 18 Blood Pressure 131/74 Pulse Oximetry 94 96 Oxygen Delivery Method 03/29/22 17:00 03/29/22 17:30 Temperature Pulse Rate 78 73 Respiratory Rate 18 18 Blood Pressure Pulse Oximetry 95 94 Oxygen Delivery Method Oxygen Delivery Method Room Air Narrative Exam Narrative: GEN: Maria E middle-aged male, Alert and oriented x3, appears uncomfortable HEENT: Normocephalic, face symmetric, pupils equal round reactive to light, extraocular movements intact, sclerae anicteric, conjunctiva pale but clear, nares patent, oropharynx reveals an intact soft and hard palate with moist mucous membranes, dentition is fair NECK: Supple, no lymphadenopathy, thyroid without enlargement or nodularity, carotids no bruits CHEST: Respiratory excursions symmetric, mildly diminished in the bases but clear to auscultation bilaterally CV: Regular rate and rhythm, no murmurs, rubs, gallops, PMI cannot be palpated ABD: Soft, nontender, nondistended, bowel sounds present in all 4 quadrants, body habitus limits exam EXTR: Warm, well perfused, no clubbing/cyanosis; right knee reveals a intact surgical incision, no drainage or exudate, knee is diffusely swollen, exquisitely tender to palpation, indurated and warm to touch SKIN: Warm and dry, without rash NEURO: Alert and oriented x3, cranial nerves 2 through 12 are intact and symmetric bilaterally, motor strength 5/5 throughout, sensation intact throughout PSYCH: Mood and affect is within normal limits, judgment and insight are appropriate Objective Labs Result Diagrams: 03/29/22 14:54 03/29/22 14:54 Labs: Laboratory Results - last 24 hr 03/29/22 03/29/22 03/29/22 14:54 14:54 14:54 WBC 10.9 RBC 2.99 L Hgb 7.1 L Hct 22.3 L MCV 74.7 L MCH 23.7 L MCHC 31.8 RDW 15.9 H Plt Count 817 H Neut % (Auto) 70.5 Lymph % (Auto) 20.4 L [place] % (Auto) 6.6 Eos % (Auto) 1.7 L Baso % (Auto) 0.8 Neut # (Auto) 7700 H Lymph # (Auto) 2200 [place] # (Auto) 700 Eos # (Auto) 200 Baso # (Auto) 100 Platelet Estimate Increased on smear RBC Morphology Not Reportable Hypochromasia 1+ H Anisocytosis 1+ H Microcytosis 1+ H PT INR APTT Sodium 139 Potassium 3.6 Chloride 97 L Carbon Dioxide 35 H BUN 8 L Creatinine 0.98 Estimated GFR > 60 BUN/Creatinine Ratio 8.2 Glucose 122 H Lactate 1.1 Calcium 8.4 Total Bilirubin 0.2 AST 26 ALT 12 Alkaline Phosphatase 118 Total Creatine Kinase CK-MB (CK-2) CK-MB (CK-2) Rel Index Troponin I NT-Pro-B Natriuret Pep Total Protein 6.9 Albumin 3.7 Globulin 3.2 Albumin/Globulin Ratio 1.2 Lipase 130 Procalcitonin 0.06 SARS-CoV-2 (PCR) Blood Type Antibody Screen Crossmatch 03/29/22 03/29/22 03/29/22 14:54 14:54 15:28 WBC RBC Hgb Hct MCV MCH MCHC RDW Plt Count Neut % (Auto) Lymph % (Auto) [place] % (Auto) Eos % (Auto) Baso % (Auto) Neut # (Auto) Lymph # (Auto) [place] # (Auto) Eos # (Auto) Baso # (Auto) Platelet Estimate RBC Morphology Hypochromasia Anisocytosis Microcytosis PT 13.0 H INR 1.2 APTT 41 H Sodium Potassium Chloride Carbon Dioxide BUN Creatinine Estimated GFR BUN/Creatinine Ratio Glucose Lactate Calcium Total Bilirubin AST ALT Alkaline Phosphatase Total Creatine Kinase 95 CK-MB (CK-2) TNP CK-MB (CK-2) Rel Index TNP Troponin I < 0.012 NT-Pro-B Natriuret Pep 575 H Total Protein Albumin Globulin Albumin/Globulin Ratio Lipase Procalcitonin SARS-CoV-2 (PCR) Blood Type A Positive Antibody Screen Negative Crossmatch See Detail 03/29/22 15:51 WBC RBC Hgb Hct MCV MCH MCHC RDW Plt Count Neut % (Auto) Lymph % (Auto) [place] % (Auto) Eos % (Auto) Baso % (Auto) Neut # (Auto) Lymph # (Auto) [place] # (Auto) Eos # (Auto) Baso # (Auto) Platelet Estimate RBC Morphology Hypochromasia Anisocytosis Microcytosis PT INR APTT Sodium Potassium Chloride Carbon Dioxide BUN Creatinine Estimated GFR BUN/Creatinine Ratio Glucose Lactate Calcium Total Bilirubin AST ALT Alkaline Phosphatase Total Creatine Kinase CK-MB (CK-2) CK-MB (CK-2) Rel Index Troponin I NT-Pro-B Natriuret Pep Total Protein Albumin Globulin Albumin/Globulin Ratio Lipase Procalcitonin SARS-CoV-2 (PCR) Negative Blood Type Antibody Screen Crossmatch Assessment & Plan Assessment and plan (1) Acute blood loss anemia: Status: Acute (2) History of arthroplasty of knee: Status: Acute (3) Osteoarthritis: Status: Acute (4) Prediabetes: Problem details: Hemoglobin A1c was 6.4% on February 26, 2022 Status: Acute (5) Dyspnea: Status: Acute Assessment & Plan narrative: 1. Acute blood loss anemia Hemoglobin has trended down since surgery, likely as a combination of acute blood loss from surgery and possibly hemarthrosis related to Xarelto which was used for DVT prophylaxis. He is guaiac negative in the emergency department. No history concerning for GI bleeding. Patient is having symptoms with dyspnea and fatigue. He will be admitted for 1 unit of packed red blood cells. Hemoglobin on admission is 7.1. Will recheck labs in the morning after transfusion. 2. Postoperative from right total knee arthroplasty He underwent aspiration in Dr. Danielle's office on March 27. Thus far cultures are reported to be negative. White blood cell count is within normal limits. I do have concern for potential hemarthrosis in the setting of joint replacement and Xarelto treatment. Given his severe pain, we will pursue an MRI. Will also send a fungal DNA PCR on peripheral blood, but I suspect he is low risk for invasive fungal disease at this point given his chronic suppression. Continue to monitor. Will have PT assess. 3. Thrombocytosis Likely an acute phase reactant. His platelet count was within normal limits 10 days ago. Will follow. 4. Prediabetes Hemoglobin A1c was 6.4% last month. Discussed with patient and his . At this time he would like to remain on a regular diet but will monitor his carbohydrate intake carefully. After he has improved recovery we discussed increasing activity level to help with this 5. Dark stools Patient reported some dark stools both leading up to surgery and thereafter. He is guaiac-negative currently. Negative EGD last year. Will monitor. 6. Fevers Patient reports low-grade fevers since surgery. Blood cultures have been drawn and are pending. Thus far aspirate from his knee arthroplasty is negative. Chest x-ray revealed low lung volumes without acute abnormality. Duplex ultrasound was negative for DVT. Previous UA negative. Will repeat a UA here as well. Initiate incentive spirometry as there is some risk for atelectasis in the setting of his pain and swelling from surgery. As noted above, will also send a fungal PCR DNA test. Will plan to continue cephalexin as per his orthopedic surgeon's recommendations pending further results. 7. Chronic fungal infection of C-spine hardware Patient remains on suppressive fluconazole. This will be continued. 8. Class 1 obesity Currently, BMI is 32.2. His prior history of being 378 lb prior to his gastric bypass surgery. Overall, currently doing well. Code status Full Prophylaxis Although his pattern was score is elevated, I have deferred chemical prophylaxis in the setting of potential hemarthrosis. Disposition Pending Time Spent With Patient Critical Care time: I spent a total of [] minutes of critical care time on this patient's care today; this time is exclusive of procedural time.
[2022-03-29 18:50] LABS: Appearance Urine UA CLEAR; Bilirubin Urine UA NEGATIVE (NEGATIVE); Color Urine UA YELLOW; Glucose Urine UA TRACE g/dL (Negative); Ketones Urine UA NEGATIVE (NEGATIVE); Leukocyte Esterase Urine UA NEGATIVE (NEGATIVE); Nitrite Urine UA NEGATIVE (Negative); Occult Blood Urine UA NEGATIVE (Negative); Protein Urine UA NEGATIVE (Negative); Specific Gravity Urine UA <=1.005 (1.000-1.035); Urobilinogen Urine UA 0.2 E.U./dL (0.2); pH Urine UA 7.5 (4.5-8.0)
[2022-03-29 19:04] LABS: Bacteria Urine None Seen; Culture Indicated Urine Specimen Cultured; Hyaline Casts Urine None Seen; RBC Urine None Seen (0-5/HPF); WBC Urine None Seen (0-5/HPF)
[2022-03-29] MEDS: TIZANIDINE 4 MG TABLET PO (20:17)
[2022-03-29] MEDS: BACLOFEN 10 MG TABLET 20 MG PO (20:17)
[2022-03-29] MEDS: QUETIAPINE 25 MG TABLET PO (20:18)
[2022-03-29] MEDS: clonazePAM 0.5 MG TABLET PO (20:18)
[2022-03-29] MEDS: HYDROMORPHONE 2 MG TABLET PO (20:39)
[2022-03-29] MEDS: MIRTAZAPINE 15 MG TABLET 30 MG PO (20:39)
[2022-03-30] VITALS (11 sets, daily range): BP systolic 105–131; BP diastolic 56–79; PULSE 70–84; RESP 12–17; TEMP 36.6–37.5; O2SAT 94–98
[2022-03-30] MEDS: HYDROMORPHONE 2 MG TABLET PO ×5 (00:59→20:07)
[2022-03-30 05:18] LABS: BUN Creatinine Ratio 9.4 (6-22); Blood Urea Nitrogen 8 mg/dL (9-20); Calcium 8.2 mg/dL (8.4-10.2); Carbon Dioxide 31 mmol/L (22-32); Chloride 104 mmol/L (98-107); Estimated Glomerular Filt Rate > 60 mL/min (>60); Glucose 109 mg/dL (70-100); HEMOLYSIS < 15 (0-50); Potassium 3.5 mmol/L (3.4-5.1); Sodium 140 mmol/L (137-145)
[2022-03-30 05:25] LABS: Hemoglobin 7.3 g/dL (13.5-17.5); Mean Corpuscular HGB Conc 32.4 % (30-36); Mean Corpuscular Hemoglobin 24.4 PG (26-34); Mean Corpuscular Volume 75.3 fL (80-100); Platelet Count 749 X10^3/uL (150-400); Red Cell Distribution Width 16.3 % (11.6-14.8); White Blood Cell Count 10.2 X10^3/uL (4.5-11.0)
[2022-03-30 05:33] LABS: Hematocrit 22.6 % (41-53)
[2022-03-30 05:34] LABS: Add Manual Diff / Slide Review YES
[2022-03-30 06:22] LABS: Neutrophils Absolute Manual 6936 /uL (3000-5900); Total Cells Counted 100
[2022-03-30 06:27] LABS: Platelet Estimate Increased on smear
--- NOTE | 2022-03-30 09:03 | PM.CN ---
History of Present Illness Consult details Date Patient Seen: 03/30/22 Time Patient Seen: 09:03 Chief complaint: SOB, anemia, Poss PE- ref by Inga Danielle Reason for consult: Fatigue feeling ill recent right the referral Requesting provider: Romeo Tony Narrative: Lefty Chisholm is a 46-year-old male with a long history of bilateral knee pain. Also has a history of a gastric bypass surgery performed reference. He has a history of chronic anemia and has required transfusion approximately a year ago. He had a right total knee arthroplasty on 03/17/[address] at [facility]. Following surgery he had pain there complaints of at home fevers. He was seen in the office. Was not the ground there been aspiration was performed with sent for Gram stain and cultures. Gram stain did not show organisms. Cultures have not been finalized as of 03/28/2022 [facility] reports preliminary no growth. Meds Home Medications and Allergies Home Medications Medication Instructions Recorded Confirmed Type baclofen 20 mg tablet 20 mg PO QID 03/29/22 03/29/22 History clonazepam 1 mg tablet 0.5 mg PO DAILY PRN Anxiety 03/29/22 03/29/22 History fluconazole 100 mg tablet 200 mg PO DAILY 03/29/22 03/29/22 History lamotrigine 100 mg tablet 250 mg PO DAILY 03/29/22 03/29/22 History mirtazapine 30 mg tablet 30 mg PO DAILY 03/29/22 03/29/22 History pantoprazole 20 mg tablet,delayed 20 mg PO DAILY 03/29/22 03/29/22 History release paroxetine HCl 40 mg tablet 60 mg PO DAILY 03/29/22 03/29/22 History quetiapine 25 mg tablet 25 mg PO BEDTIME 03/29/22 03/29/22 History tamsulosin 0.4 mg capsule (Flomax) 0.4 mg PO DAILY 03/29/22 03/29/22 History tizanidine 4 mg capsule 4 mg PO Q6HR PRN Pain (Scale Score 03/29/22 03/29/22 History 1-3) furosemide 40 mg tablet (Lasix) 60 mg PO QAM 03/30/22 03/30/22 History pregabalin 100 mg capsule 100 mg PO TID 03/30/22 03/30/22 History Allergies Allergy/AdvReac Type Severity Reaction Status Date / Time ketamine Allergy Verified 03/29/22 14:31 NSAIDS (Non-Steroidal Allergy Verified 03/29/22 14:31 Anti-Inflamma Review of Systems Review of Systems Narrative: Complaints subjective fevers, chills, fatigue, specific shortness breath component. Endorses knee pain stiffness Exam Vital Signs (past 8 hours): - 03/30/22 06:00 Temperature 98.1 F Pulse Rate 76 Respiratory Rate 16 Blood Pressure 109/62 Pulse Oximetry 97 Oxygen Flow Rate 0 Oxygen Delivery Method Room Air Oxygen Flow Rate 0 Narrative Exam Narrative: General exam is a high alert and oriented patient lying in bed. Rather pale. No acute distress afebrile HEENT exam normocephalic atraumatic Respiratory exam is from the repetitive cough problem in the exam room no wheezing or for accessory muscle use Heart exam: Regular rate and rhythm Musculoskeletal exam right knee with swelling compared to contralateral side. Well-healed anterior longitudinal scar in the incision. There is no erythema there is no drainage. With encouragement demonstrated 0? extension to full flexion. Currently lying in bed with the and biopsies lying on his side. No focal tenderness. Calf is soft. Thigh is soft. Palpable posterior tibialis pulses and palpable dorsalis pedis pulses. Demonstrates dorsiflexion plantar flexion of the ankle and toes. Denies any numbness or tingling. Objective Imaging CTAchest: Radiologist's impression: IMPRESSION: Multifocal pneumonia. No pulmonary embolism. Dictated by: Edmund Wayne M.D. on 03/29/2022 at 20:27 Labs Result Diagrams: 03/30/22 05:00 03/30/22 05:00 Labs: Laboratory Results - last 24 hr 03/29/22 03/29/22 03/29/22 14:54 14:54 14:54 WBC 10.9 RBC 2.99 L Hgb 7.1 L Hct 22.3 L MCV 74.7 L MCH 23.7 L MCHC 31.8 RDW 15.9 H Plt Count 817 H Neut % (Auto) 70.5 Lymph % (Auto) 20.4 L [place] % (Auto) 6.6 Eos % (Auto) 1.7 L Baso % (Auto) 0.8 Neut # (Auto) 7700 H Lymph # (Auto) 2200 [place] # (Auto) 700 Eos # (Auto) 200 Baso # (Auto) 100 Total Counted Seg Neutrophils % Lymphocytes % (Manual) Monocytes % (Manual) Eosinophils % (Manual) Basophils % (Manual) Neutrophils # (Manual) Platelet Estimate Increased on smear RBC Morphology Not Reportable Dimorphic RBCs Hypochromasia 1+ H Anisocytosis 1+ H Microcytosis 1+ H PT INR APTT Sodium 139 Potassium 3.6 Chloride 97 L Carbon Dioxide 35 H BUN 8 L Creatinine 0.98 Estimated GFR > 60 BUN/Creatinine Ratio 8.2 Glucose 122 H Lactate 1.1 Calcium 8.4 Total Bilirubin 0.2 AST 26 ALT 12 Alkaline Phosphatase 118 Total Creatine Kinase CK-MB (CK-2) CK-MB (CK-2) Rel Index Troponin I NT-Pro-B Natriuret Pep Total Protein 6.9 Albumin 3.7 Globulin 3.2 Albumin/Globulin Ratio 1.2 Lipase 130 Procalcitonin 0.06 Urine Color Urine Appearance Urine pH Ur Specific [place] Urine Protein Urine Glucose (UA) Urine Ketones Urine Occult Blood Urine Nitrate Urine Bilirubin Urine Urobilinogen Ur Leukocyte Esterase Urine RBC Urine WBC Urine Bacteria Hyaline Casts Ur Culture Indicated? SARS-CoV-2 (PCR) Blood Type Antibody Screen Crossmatch 03/29/22 03/29/22 03/29/22 14:54 14:54 15:28 WBC RBC Hgb Hct MCV MCH MCHC RDW Plt Count Neut % (Auto) Lymph % (Auto) [place] % (Auto) Eos % (Auto) Baso % (Auto) Neut # (Auto) Lymph # (Auto) [place] # (Auto) Eos # (Auto) Baso # (Auto) Total Counted Seg Neutrophils % Lymphocytes % (Manual) Monocytes % (Manual) Eosinophils % (Manual) Basophils % (Manual) Neutrophils # (Manual) Platelet Estimate RBC Morphology Dimorphic RBCs Hypochromasia Anisocytosis Microcytosis PT 13.0 H INR 1.2 APTT 41 H Sodium Potassium Chloride Carbon Dioxide BUN Creatinine Estimated GFR BUN/Creatinine Ratio Glucose Lactate Calcium Total Bilirubin AST ALT Alkaline Phosphatase Total Creatine Kinase 95 CK-MB (CK-2) TNP CK-MB (CK-2) Rel Index TNP Troponin I < 0.012 NT-Pro-B Natriuret Pep 575 H Total Protein Albumin Globulin Albumin/Globulin Ratio Lipase Procalcitonin Urine Color Urine Appearance Urine pH Ur Specific [place] Urine Protein Urine Glucose (UA) Urine Ketones Urine Occult Blood Urine Nitrate Urine Bilirubin Urine Urobilinogen Ur Leukocyte Esterase Urine RBC Urine WBC Urine Bacteria Hyaline Casts Ur Culture Indicated? SARS-CoV-2 (PCR) Blood Type A Positive Antibody Screen Negative Crossmatch See Detail 03/29/22 03/29/22 03/30/22 15:51 18:39 05:00 WBC 10.2 RBC 3.00 L Hgb 7.3 L Hct 22.6 L MCV 75.3 L MCH 24.4 L MCHC 32.4 RDW 16.3 H Plt Count 749 H Neut % (Auto) Not Reportable Lymph % (Auto) Not Reportable [place] % (Auto) Not Reportable Eos % (Auto) Not Reportable Baso % (Auto) Not Reportable Neut # (Auto) Lymph # (Auto) Not Reportable [place] # (Auto) Not Reportable Eos # (Auto) Baso # (Auto) Not Reportable Total Counted 100 Seg Neutrophils % 68.0 Lymphocytes % (Manual) 23.0 L Monocytes % (Manual) 7.0 Eosinophils % (Manual) 1.0 L Basophils % (Manual) 1.0 Neutrophils # (Manual) 6936 H Platelet Estimate Increased on smear RBC Morphology See below Dimorphic RBCs * Hypochromasia Anisocytosis Microcytosis PT INR APTT Sodium Potassium Chloride Carbon Dioxide BUN Creatinine Estimated GFR BUN/Creatinine Ratio Glucose Lactate Calcium Total Bilirubin AST ALT Alkaline Phosphatase Total Creatine Kinase CK-MB (CK-2) CK-MB (CK-2) Rel Index Troponin I NT-Pro-B Natriuret Pep Total Protein Albumin Globulin Albumin/Globulin Ratio Lipase Procalcitonin Urine Color Yellow Urine Appearance Clear Urine pH 7.5 Ur Specific [place] <=1.005 Urine Protein Negative Urine Glucose (UA) Trace H Urine Ketones Negative Urine Occult Blood Negative Urine Nitrate Negative Urine Bilirubin Negative Urine Urobilinogen 0.2 Ur Leukocyte Esterase Negative Urine RBC None seen Urine WBC None seen Urine Bacteria None seen Hyaline Casts None seen Ur Culture Indicated? Specimen cultured SARS-CoV-2 (PCR) Negative Blood Type Antibody Screen Crossmatch 03/30/22 05:00 WBC RBC Hgb Hct MCV MCH MCHC RDW Plt Count Neut % (Auto) Lymph % (Auto) [place] % (Auto) Eos % (Auto) Baso % (Auto) Neut # (Auto) Lymph # (Auto) [place] # (Auto) Eos # (Auto) Baso # (Auto) Total Counted Seg Neutrophils % Lymphocytes % (Manual) Monocytes % (Manual) Eosinophils % (Manual) Basophils % (Manual) Neutrophils # (Manual) Platelet Estimate RBC Morphology Dimorphic RBCs Hypochromasia Anisocytosis Microcytosis PT INR APTT Sodium 140 Potassium 3.5 Chloride 104 Carbon Dioxide 31 BUN 8 L Creatinine 0.85 Estimated GFR > 60 BUN/Creatinine Ratio 9.4 Glucose 109 H Lactate Calcium 8.2 L Total Bilirubin AST ALT Alkaline Phosphatase Total Creatine Kinase CK-MB (CK-2) CK-MB (CK-2) Rel Index Troponin I NT-Pro-B Natriuret Pep Total Protein Albumin Globulin Albumin/Globulin Ratio Lipase Procalcitonin Urine Color Urine Appearance Urine pH Ur Specific [place] Urine Protein Urine Glucose (UA) Urine Ketones Urine Occult Blood Urine Nitrate Urine Bilirubin Urine Urobilinogen Ur Leukocyte Esterase Urine RBC Urine WBC Urine Bacteria Hyaline Casts Ur Culture Indicated? SARS-CoV-2 (PCR) Blood Type Antibody Screen Crossmatch patient has thrombocytosis Symptomatic anemia PFSH Medical History Chronic anemia Osteoarthritis Prediabetes Surgical History Gastric bypass status for obesity History of arthroplasty of knee Social History marital status: household members: spouse Tobacco & Substance Use Smoking Status: Never smoker alcohol intake: never Assessment & Plan Assessment and plan (1) Thrombocytosis: Problem details: Elevated platelet count. Can be found in setting of postop orthopedic surgery and pneumonia Status: Acute (2) History of arthroplasty of knee: Problem details: Right knee arthroplasty 03/17/2022. And swelling postop. Knee was aspirated in clinic. Cultures so far negative. Likely hemarthrosis after surgery. Offered aspiration. Patient declined due to pain from aspiration office. No erythema no obvious signs of infection. Previous cultures negative Gram stain and preliminary no growth. Demonstrates range of motion 0-90. Encouraged to work on range of motion work with physical therapy prevent knee stiffness. In use the ice packs. Discussed using a pillow under heel and not under knee in bed to make sure he gets to full extension. Do not see current indication for emergent surgery. Will follow up right knee aspiration fluid culture--[facility]--no growth on preliminary cultures as of 03/28/2022 Status: Acute (3) Acute blood loss anemia: Problem details: Acute blood loss anemia on top of chronic anemia. Status post gastric bypass has had chronic anemia. Per patient report this morning there has been talk with his gastric doctors about starting routine transfusions or iron transfusions. He has had a blood transfusion in the past. Presents with increased anemia as suspected acute blood loss anemia on top of chronic anemia after his total knee arthroplasty. Hemoglobin was 7.1. Got 1 unit yesterday. Marginally improved to 7.3 today. He was guaiac negative. Systolic blood pressure above 100 today but low normal. Not tachycardic with hemoglobin 7.3 and fatigue may benefit from 1 more unit but will need to monitor for volume overload as well. Fatigue may also be caused by pneumonia seen on chest CT. Appreciate hospitalist management. Status: Acute (4) Pneumonia: Status: Acute Plan Multifocal pneumonia seen on chest CT. May explain patient's fatigue is well. Antibiotic Treatment per hospitalist. Encourage incentive spirometry. Respiratory therapy COVID-19 COVID-19 status: Negative Time Spent With Patient Time with patient: less than 30 minutes Critical Care time: I spent a total of [] minutes of critical care time on this patient's care today; this time is exclusive of procedural time.
[2022-03-30] MEDS: TAMSULOSIN 0.4 MG CAPSULE PO (09:38)
[2022-03-30] MEDS: lamoTRIgine 100 MG TABLET 250 MG PO (09:38)
[2022-03-30] MEDS: PANTOPRAZOLE DR 20 MG TABLET PO (09:39)
[2022-03-30] MEDS: FLUCONAZOLE 100 MG TABLET 200 MG PO (09:39)
[2022-03-30] MEDS: PARoxetine 20 MG TABLET 60 MG PO (09:39)
[2022-03-30] MEDS: BACLOFEN 10 MG TABLET 20 MG PO ×4 (09:39→21:54)
[2022-03-30] MEDS: PREGABALIN 50 MG CAPSULE 100 MG PO ×3 (11:36→21:53)
[2022-03-30] MEDS: DOXYCYCLINE HYCLATE 100 MG TABLET PO ×2 (11:36→21:54)
[2022-03-30] MEDS: FUROSEMIDE 20 MG TABLET 60 MG PO (11:37)
[2022-03-30] MEDS: ACETAMINOPHEN 325 MG TABLET 650 MG PO ×2 (12:08→20:07)
--- NOTE | 2022-03-30 12:43 | PT-IP ANOTE ---
Received PT orders and reviewed the chart. Pt admitted with symptomatic anemia. H&H minimally improved after transfusion to 7.3/22.6. Pt to receive more blood products. PT will check back for improved H&H before initiating PT evaluation.
--- NOTE | 2022-03-30 12:49 | CM.DANOTE ---
DCP/Assessment: Reviewed chart. Patient is a 46yr old male admitted to [facility] with SOB/anemia. PCP is Dipak Ward. Primary payor is [employer]. Met with patient explained CM/SW role. Patient alert and oriented pleasant at time of visit. Patient currently anemic and undergoing blood transfusion. P.T. evaluation currently pending. Patient underwent right TKA on 03-17-22 in outpatient setting with Dr. Danielle. Patient reports that he resides with his spouse and children in [place]. Patient scheduled to start outpatient therapy this upcoming week but obviously cancelled do to hospitalization. Current plan is for patient to d/c home when medically stable with continued outpatient follow up. Prior to admit patient was using a cane for ambulation. P: Home when medically stable. CM team following closely. [facility] Discharge Planning/Care Management CM Discharge Assessment Start: 03/30/22 12:44 Freq: Status: Active Protocol: Document 03/30/22 12:45 [place] (Rec: 03/30/22 12:49 RUST [id number]) Discharge Planning Assessment Assigned [employer] BENJIE [place] Contact Information Breana Valerio (spouse) ph# [phone] Advance Directives? No History Provided By Patient,Medical Record Has Patient been admitted in last 30 No days? Prior Living Arrangements House Household Members spouse Type of transporation used prior to Relies on Others admit Comment Currently relying on other's secondary to Right TKA on 03-17 as outpatient. Independent with ADL's Yes: Patient was using a cane prior to admit. Is patient alert and oriented? Yes Caregiver for Another Yes: Spouse and 2 children Community Services used prior to Physical Therapy admission: Comment Patient was preparing to start outpatient therapy in [facility] prior to admit. DME Already Rented / Owned FWW / Walker,Cane Patient/Family Preference OP PT Therapy Comment Patient hopes to d/c home with continued outpatient therapy. Barriers to Discharge No Discharge Plan Home Community Services Physical Therapy Transportation Arrangement Family to provide transport. Additional Comment Patient with therapy evaluation pending. Whiteboard Updated in Patient Room with Yes name and ext. # of [employer] Review Status In Process Next Review Type Continued Stay Review
--- NOTE | 2022-03-30 17:26 | P.PN_ITS ---
Subjective Subjective Date Patient Seen: 03/30/22 Interval history: 46-year-old gentleman with class 1 obesity status post prior bariatric surgery, previous C3 through 7 laminectomy/fusion for spinal cord injury, complicated by postop fungal infection now on daily suppressive fluconazole therapy, underwent right TKA on March 17 at an outpatient surgery center presented to the emergency department yesterday complaining of right leg pain, swelling, fatigue, and shortness of breath over the last 2 weeks. He was admitted for symptomatic anemia and transfusion. Orthopedic surgery eval uated and felt that he does have clinical signs of hemarthrosis but no evidence of septic arthritis. No further intervention was recommended, as patient declined a joint aspiration for comfort. CT PE was done secondary to his dyspnea and was negative for pulmonary embolus but did reveal multifocal pneumonia. He did receive 1 unit of packed red blood cells overnight. He notes no significant difference today. Exam Vital Signs (past 8 hours): - 03/30/22 12:29 03/30/22 12:44 03/30/22 12:00 Temperature 98.1 F 97.9 F 97.9 F Pulse Rate 76 75 72 Respiratory Rate 16 16 14 Blood Pressure 122/71 128/74 128/74 Pulse Oximetry 98 Oxygen Flow Rate 0 03/30/22 15:39 Temperature 97.8 F Pulse Rate 70 Respiratory Rate 16 Blood Pressure 119/76 Pulse Oximetry Oxygen Flow Rate Oxygen Delivery Method Room Air Oxygen Flow Rate 0 Narrative Exam Narrative: GEN: Alert and oriented x 3, NAD HEENT:NC, Face symmetric is quite pale CHEST: Respiratory excursions symmetric, coarse with faint rhonchi in the right lower lobe CV: RRR, no M/R/G ABD: Soft, NT/ND, BT present in all 4 quadrants, body habitus limits exam EXTR: warm, well perfused, no C/C, somewhat decreased swelling noted to the right lower extremity/knee SKIN: warm and dry, no rash NEURO: Alert and oriented x 3, nonfocal Objective Labs Result Diagrams: 03/30/22 05:00 03/30/22 05:00 Labs: Laboratory Results - last 24 hr 03/29/22 03/29/22 03/30/22 14:54 18:39 05:00 WBC 10.2 RBC 3.00 L Hgb 7.3 L Hct 22.6 L MCV 75.3 L MCH 24.4 L MCHC 32.4 RDW 16.3 H Plt Count 749 H Neut % (Auto) Not Reportable Lymph % (Auto) Not Reportable [place] % (Auto) Not Reportable Eos % (Auto) Not Reportable Baso % (Auto) Not Reportable Lymph # (Auto) Not Reportable [place] # (Auto) Not Reportable Baso # (Auto) Not Reportable Total Counted 100 Seg Neutrophils % 68.0 Lymphocytes % (Manual) 23.0 L Monocytes % (Manual) 7.0 Eosinophils % (Manual) 1.0 L Basophils % (Manual) 1.0 Neutrophils # (Manual) 6936 H Platelet Estimate Increased on smear RBC Morphology See below Dimorphic RBCs * Sodium Potassium Chloride Carbon Dioxide BUN Creatinine Estimated GFR BUN/Creatinine Ratio Glucose Calcium Urine Color Yellow Urine Appearance Clear Urine pH 7.5 Ur Specific [place] <=1.005 Urine Protein Negative Urine Glucose (UA) Trace H Urine Ketones Negative Urine Occult Blood Negative Urine Nitrate Negative Urine Bilirubin Negative Urine Urobilinogen 0.2 Ur Leukocyte Esterase Negative Urine RBC None seen Urine WBC None seen Urine Bacteria None seen Hyaline Casts None seen Ur Culture Indicated? Specimen cultured Blood Type A Positive Antibody Screen Negative Crossmatch See Detail 03/30/22 05:00 WBC RBC Hgb Hct MCV MCH MCHC RDW Plt Count Neut % (Auto) Lymph % (Auto) [place] % (Auto) Eos % (Auto) Baso % (Auto) Lymph # (Auto) [place] # (Auto) Baso # (Auto) Total Counted Seg Neutrophils % Lymphocytes % (Manual) Monocytes % (Manual) Eosinophils % (Manual) Basophils % (Manual) Neutrophils # (Manual) Platelet Estimate RBC Morphology Dimorphic RBCs Sodium 140 Potassium 3.5 Chloride 104 Carbon Dioxide 31 BUN 8 L Creatinine 0.85 Estimated GFR > 60 BUN/Creatinine Ratio 9.4 Glucose 109 H Calcium 8.2 L Urine Color Urine Appearance Urine pH Ur Specific [place] Urine Protein Urine Glucose (UA) Urine Ketones Urine Occult Blood Urine Nitrate Urine Bilirubin Urine Urobilinogen Ur Leukocyte Esterase Urine RBC Urine WBC Urine Bacteria Hyaline Casts Ur Culture Indicated? Blood Type Antibody Screen Crossmatch [facility] Medical History Chronic anemia Osteoarthritis Prediabetes Surgical History Gastric bypass status for obesity History of arthroplasty of knee Social History marital status: household members: spouse Smoking Status: Never smoker alcohol intake: never Assessment & Plan Assessment & Plan narrative: 1. Acute blood loss anemia Hemoglobin is 7.3 today. He remains quite pale, fatigued, dyspneic. Will give 1 additional unit of packed red blood cells particularly in the setting of prior gastric bypass and nutritional deficiencies due to absorption issues. Will repeat a hemoglobin tomorrow. 2. Postop from right total knee arthroplasty, complicated by probable hemarthrosis Continue ice and elevation. Working on increasing his mobility. Physical t herapy was consulted and consult is pending at this time. Appreciate consult per Dr. Stevens. 3. Multifocal pneumonia Will initiate patient on Rocephin and doxycycline (azithromycin has potential QT prolongation in combination with fluconazole which he takes chronically). For unclear reasons, incentive spirometry was not provided yesterday. I have asked nursing to provide an incentive spirometer today. He is afebrile at this time. 4. Thrombocytosis Platelet count is mildly improved today. Will monitor. 5. Pre diabetes Hemoglobin A1c was 6 4%. Patient is aware he needs outpatient follow-up. 6. Dark stools Previously had an EGD last year which was negative, stool was guaiac negative at that time. He had incomplete colonoscopy prep so was not able to have a full colonoscopy. Negative stool guaiac in the ED yesterday. 7. Fevers Likely secondary to multifocal pneumonia. Unlikely to be septic arthritis, cultures are negative to date. 8. Chronic fungal infection of C-spine hardware Continue chronic suppressive fluconazole 9. Class 1 obesity BMI is 32.2. Code status Full Prophylaxis Chemical prophylaxis Deferred in the setting of hemarthrosis Disposition Possibly discharge home tomorrow Time Spent With Patient Critical Care time: I spent a total of [] minutes of critical care time on this patient's care today; this time is exclusive of procedural time. Quality VTE Deep Vein Thrombosis/Pulmonary Embolism Present on Admission: No
[2022-03-30] MEDS: cefTRIAXone 2,000 MG in SODIUM CHLORIDE 0.9% 100 ML 200 MG IV (17:37)
[2022-03-30] MEDS: TIZANIDINE 4 MG TABLET PO (20:07)
[2022-03-30] MEDS: QUETIAPINE 25 MG TABLET PO (21:54)
[2022-03-30] MEDS: MIRTAZAPINE 15 MG TABLET 30 MG PO (21:54)
[2022-03-30] MEDS: clonazePAM 0.5 MG TABLET PO (21:54)
[2022-03-31 05:15] VITALS: BP 136/61; PULSE 72; RESP 14; TEMP 36.8; O2SAT 98
[2022-03-31 05:45] LABS: Basophils Absolute Auto 100 /uL (0-100); Basophils Percent Auto 0.9 % (0-2); Eosinophils Absolute Auto 100 /uL (0-450); Eosinophils Percent Auto 1.8 % (2-4); Hemoglobin 8.5 g/dL (13.5-17.5); Lymphocytes Absolute Auto 1900 /uL (1100-4500); Lymphocytes Percent Auto 22.8 % (25-40); Mean Corpuscular HGB Conc 32.7 % (30-36); Mean Corpuscular Hemoglobin 24.7 PG (26-34); Mean Corpuscular Volume 75.5 fL (80-100); Monocytes Absolute Auto 600 /uL (0-900); Monocytes Percent Auto 7.2 % (3-14); Neutrophils Absolute Auto 5600 /uL (1500-7000); Neutrophils Percent Auto 67.3 % (50-75); Platelet Count 823 X10^3/uL (150-400); Red Blood Cell Count 3.44 X10^6/uL (4.5-5.9); Red Cell Distribution Width 16.7 % (11.6-14.8); White Blood Cell Count 8.3 X10^3/uL (4.5-11.0)
[2022-03-31 05:47] LABS: BUN Creatinine Ratio 8.2 (6-22); Blood Urea Nitrogen 7 mg/dL (9-20); Calcium 8.6 mg/dL (8.4-10.2); Carbon Dioxide 31 mmol/L (22-32); Chloride 105 mmol/L (98-107); Estimated Glomerular Filt Rate > 60 mL/min (>60); Glucose 105 mg/dL (70-100); HEMOLYSIS < 15 (0-50); Potassium 3.4 mmol/L (3.4-5.1); Sodium 144 mmol/L (137-145)
[2022-03-31 05:50] LABS: Add Manual Diff / Slide Review SLIDE REVIEW
[2022-03-31 07:23] LABS: Anisocytosis 1+; Hypochromasia 1+; Microcytosis 1+
[2022-03-31 07:24] LABS: Platelet Estimate Increased on smear; Polychromasia 1+
--- NOTE | 2022-03-31 07:24 | P.PN_ITS ---
Subjective Subjective Date Patient Seen: 03/31/22 Time Patient Seen: 14:28 Interval history: Patient is complaining of mild right knee pain. He denies any dizziness or lightheadedness since his blood transfusion. He is requesting to go home with. He has worked with physical therapy. Exam Vital Signs (past 8 hours): - 03/31/22 05:15 Temperature 98.2 F Pulse Rate 72 Respiratory Rate 14 Blood Pressure 136/61 Pulse Oximetry 98 Oxygen Flow Rate 0 Oxygen Delivery Method Room Air Oxygen Flow Rate 0 Narrative Exam Narrative: Pleasant 46-year-old male, resting comfortably in bed, no acute distress. He is somewhat pale appearing. Incision is clean, dry, intact. Bilateral lower extremity: Motor functions are grossly intact, sensation is grossly intact to light touch, calves are soft and nontender to palpation. Objective Labs Result Diagrams: 03/31/22 05:03 03/31/22 05:03 Labs: Laboratory Results - last 24 hr 03/29/22 03/31/22 03/31/22 14:54 05:03 05:03 WBC 8.3 RBC 3.44 L Hgb 8.5 L Hct 26.0 L MCV 75.5 L MCH 24.7 L MCHC 32.7 RDW 16.7 H Plt Count 823 H Neut % (Auto) 67.3 Lymph % (Auto) 22.8 L [place] % (Auto) 7.2 Eos % (Auto) 1.8 L Baso % (Auto) 0.9 Neut # (Auto) 5600 Lymph # (Auto) 1900 [place] # (Auto) 600 Eos # (Auto) 100 Baso # (Auto) 100 Sodium 144 Potassium 3.4 Chloride 105 Carbon Dioxide 31 BUN 7 L Creatinine 0.85 Estimated GFR > 60 BUN/Creatinine Ratio 8.2 Glucose 105 H Calcium 8.6 Blood Type A Positive Antibody Screen Negative Crossmatch See Detail [facility] Medical History Chronic anemia Osteoarthritis Prediabetes Surgical History Gastric bypass status for obesity History of arthroplasty of knee Social History marital status: household members: spouse Smoking Status: Never smoker alcohol intake: never Assessment & Plan Assessment & Plan narrative: Assessment and plan (1) Thrombocytosis: ?Problem details: Elevated platelet count.? Can be found in setting of postop orthopedic surgery and pneumonia ?Status:?Acute (2) History of arthroplasty of knee: ?Problem details: Right knee arthroplasty 03/17/2022.? And swelling postop.? Knee was aspirated in clinic.? Cultures so far negative.? Possible hemarthrosis after surgery.? Offered aspiration by Dr. Solares, patient declined. No erythema no obvious signs of infection.? Previous cultures negative Gram stain and preliminary no growth.? Demonstrates range of motion 0-90.? Encouraged to work on range of motion work with physical therapy prevent knee stiffness.? In use the ice packs.? Discussed using a pillow under heel and not under knee in bed to make sure he gets to full extension.? Do not see current indication for emergent surgery.? Will follow up right knee aspiration fluid culture--[facility]--no growth on preliminary cultures as of 03/28/2022. Follow-up with outpatient physical therapy and Dr. Danielle on an outpatient basis, as scheduled. -per Dr. Danielle, no need for DVT prophylaxis at this time as the risks outweigh the benefits. The patient verbalizes understanding and will get up every hour and walk for 5-10 minutes and will continue with his incentive spirometer. ?Status:?Acute (3) Acute blood loss anemia: ?Problem details: Acute blood loss anemia on top of chronic anemia.? Status post gastric bypass has had chronic anemia.? Per patient report this morning there has been talk with his gastric doctors about starting routine transfusions or iron transfusions.? He has had a blood transfusion in the past.? Presents with increased anemia as suspected acute blood loss anemia on top of chronic anemia after his total knee arthroplasty.? Hemoglobin was 7.1.? Got 1 unit yesterday.? Marginally improved to 7.3 today.? He was guaiac negative.? Systolic blood pressure above 100 today but low normal.? Not tachycardic with hemoglobin 7.3 and fatigue may benefit from 1 more unit but will need to monitor for volume overload as well.? Fatigue may also be caused by pneumonia seen on chest CT.? Appreciate hospitalist management. He has an outpatient hematology consultation at [facility] later this week. ?Status:?Acute (4) Pneumonia: ?Status:?Acute Plan Multifocal pneumonia seen on chest CT.? May explain patient's fatigue is well.? Antibiotic Treatment per hospitalist.? Encourage incentive spirometry.? Respiratory therapy COVID-19 COVID-19 status: Negative Time Spent With Patient Critical Care time: I spent a total of [] minutes of critical care time on this patient's care today; this time is exclusive of procedural time. Quality VTE Deep Vein Thrombosis/Pulmonary Embolism Present on Admission: No
[2022-03-31 07:32] VITALS: BP 138/75; PULSE 82; RESP 18; TEMP 36.9; O2SAT 96
--- NOTE | 2022-03-31 07:45 | P.PN_ITS ---
Subjective Subjective Date Patient Seen: 03/30/22 Interval history: 46-year-old gentleman with class 1 obesity status post prior bariatric surgery, previous C3 through 7 laminectomy/fusion for spinal cord injury, complicated by postop fungal infection now on daily suppressive fluconazole therapy, underwent right TKA on March 17 at an outpatient surgery center presented to the emergency department yesterday complaining of right leg pain, swelling, fatigue, and shortness of breath over the last 2 weeks. He was admitted for symptomatic anemia and transfusion. Orthopedic surgery eval uated and felt that he does have clinical signs of hemarthrosis but no evidence of septic arthritis. No further intervention was recommended, as patient declined a joint aspiration for comfort. CT PE was done secondary to his dyspnea and was negative for pulmonary embolus but did reveal multifocal pneumonia. He did receive 1 unit of packed red blood cells overnight. He notes no significant difference today. Exam Vital Signs (past 8 hours): - 03/31/22 05:15 03/31/22 07:32 Temperature 98.2 F 98.4 F Pulse Rate 72 82 Respiratory Rate 14 18 Blood Pressure 136/61 138/75 Pulse Oximetry 98 96 Oxygen Flow Rate 0 0 Oxygen Delivery Method Room Air Oxygen Flow Rate 0 Narrative Exam Narrative: GEN: Alert and oriented x 3, NAD HEENT:NC, Face symmetric is quite pale CHEST: Respiratory excursions symmetric, coarse with faint rhonchi in the right lower lobe CV: RRR, no M/R/G ABD: Soft, NT/ND, BT present in all 4 quadrants, body habitus limits exam EXTR: warm, well perfused, no C/C, somewhat decreased swelling noted to the right lower extremity/knee SKIN: warm and dry, no rash NEURO: Alert and oriented x 3, nonfocal Objective Labs Result Diagrams: 03/31/22 05:03 03/31/22 05:03 Labs: Laboratory Results - last 24 hr 03/29/22 03/31/22 03/31/22 14:54 05:03 05:03 WBC 8.3 RBC 3.44 L Hgb 8.5 L Hct 26.0 L MCV 75.5 L MCH 24.7 L MCHC 32.7 RDW 16.7 H Plt Count 823 H Neut % (Auto) 67.3 Lymph % (Auto) 22.8 L [place] % (Auto) 7.2 Eos % (Auto) 1.8 L Baso % (Auto) 0.9 Neut # (Auto) 5600 Lymph # (Auto) 1900 [place] # (Auto) 600 Eos # (Auto) 100 Baso # (Auto) 100 Platelet Estimate Increased on smear RBC Morphology See below Polychromasia 1+ H Hypochromasia 1+ H Anisocytosis 1+ H Microcytosis 1+ H Sodium 144 Potassium 3.4 Chloride 105 Carbon Dioxide 31 BUN 7 L Creatinine 0.85 Estimated GFR > 60 BUN/Creatinine Ratio 8.2 Glucose 105 H Calcium 8.6 Blood Type A Positive Antibody Screen Negative Crossmatch See Detail [facility] Medical History Chronic anemia Osteoarthritis Prediabetes Surgical History Gastric bypass status for obesity History of arthroplasty of knee Social History marital status: household members: spouse Smoking Status: Never smoker alcohol intake: never Assessment & Plan Assessment & Plan narrative: 1. Acute blood loss anemia Hemoglobin is 7.3 today. He remains quite pale, fatigued, dyspneic. Will give 1 additional unit of packed red blood cells particularly in the setting of prior gastric bypass and nutritional deficiencies due to absorption issues. Will repeat a hemoglobin tomorrow. 2. Postop from right total knee arthroplasty, complicated by probable hemarthrosis Continue ice and elevation. Working on increasing his mobility. Physical therapy was consulted and consult is pending at this time. Appreciate consult per Dr. Stevens. 3. Multifocal pneumonia Will initiate patient on Rocephin and doxycycline (azithromycin has potential QT prolongation in combination with fluconazole which he takes chronically). For unclear reasons, incentive spirometry was not provided yesterday. I have asked nursing to provide an incentive spirometer today. He is afebrile at this time. 4. Thrombocytosis Platelet count is mildly improved today. Will monitor. 5. Pre diabetes Hemoglobin A1c was 6 4%. Patient is aware he needs outpatient follow-up. 6. Dark stools Previously had an EGD last year which was negative, stool was guaiac negative at that time. He had incomplete colonoscopy prep so was not able to have a full colonoscopy. Negative stool guaiac in the ED yesterday. 7. Fevers Likely secondary to multifocal pneumonia. Unlikely to be septic arthritis, cultures are negative to date. 8. Chronic fungal infection of C-spine hardware Continue chronic suppressive fluconazole 9. Class 1 obesity BMI is 32.2. Code status Full Prophylaxis Chemical prophylaxis Deferred in the setting of hemarthrosis Disposition Possibly discharge home tomorrow Time Spent With Patient Critical Care time: I spent a total of [] minutes of critical care time on this patient's care today; this time is exclusive of procedural time. Quality VTE Deep Vein Thrombosis/Pulmonary Embolism Present on Admission: No
[2022-03-31] MEDS: clonazePAM 0.5 MG TABLET PO (08:11)
[2022-03-31 08:35] LABS: Magnesium 2.5 mg/dL (1.6-2.3)
[2022-03-31] MEDS: BACLOFEN 10 MG TABLET 20 MG PO ×2 (08:35→13:01)
[2022-03-31] MEDS: DOXYCYCLINE HYCLATE 100 MG TABLET PO (08:35)
[2022-03-31] MEDS: FLUCONAZOLE 100 MG TABLET 200 MG PO (08:35)
[2022-03-31] MEDS: PARoxetine 20 MG TABLET 60 MG PO (08:36)
[2022-03-31] MEDS: FUROSEMIDE 20 MG TABLET 60 MG PO (08:36)
[2022-03-31] MEDS: PANTOPRAZOLE DR 20 MG TABLET PO (08:36)
[2022-03-31] MEDS: TAMSULOSIN 0.4 MG CAPSULE PO (08:36)
[2022-03-31] MEDS: PREGABALIN 50 MG CAPSULE 100 MG PO ×2 (08:36→15:33)
[2022-03-31] MEDS: lamoTRIgine 100 MG TABLET 250 MG PO (08:36)
[2022-03-31] MEDS: HYDROMORPHONE 2 MG TABLET PO ×2 (09:14→13:01)
--- NOTE | 2022-03-31 09:15 | PT.IIE ---
Current Diagnoses Acute posthemorrhagic anemia (03/30/22) Thrombocytosis, unspecified (03/30/22) Pneumonia, unspecified organism (03/30/22) Unspecified osteoarthritis, unspecified site (03/30/22) Dyspnea, unspecified (03/30/22) Prediabetes (03/30/22) Presence of unspecified artificial knee joint (03/30/22) Surgical History (Last Reviewed 03/30/22 @ 09:08 by Savannah Solares MD) Gastric bypass status for obesity History of arthroplasty of knee Medical History (Last Reviewed 03/30/22 @ 09:08 by Savannah Solares MD) Chronic anemia Osteoarthritis Prediabetes Physical Therapy Inpatient Evaluation/Re-Eval M1 PT/OT-IP Prior Functional Status Start: 03/30/22 08:21 Freq: NEEDED Status: Active Protocol: Document 03/31/22 09:15 AW (Rec: 03/31/22 09:52 AW [id number]) Medical Review Prior Functional Status Medical History Reviewed Yes Communication WNL Mobility and Gait Pt is typically independent with all mobility. He had R TKA at an outpatient surgery center on 03/17/22. He has had swelling and pain since then. He has been ambulating with SPC. Activities of Daily Living and IADL's Independent. Prior Functional Level (Other details) PMH includes bariatric surgery , C3-C7 lami and fusion with subsequent fungal infection, and chronic anemia. Social History Household Members spouse Living Arrangements House Number of Floors (Floors) One Floor Number of Stairs To Enter/Railing? 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 He lives with his spouse who is home full-time with their 3 yo and 11 yo children. M2 PT-IP Current Condition Start: 03/30/22 08:21 Freq: NEEDED Status: Active Protocol: Document 03/31/22 09:15 AW (Rec: 03/31/22 09:52 AW [id number]) Physical Therapy Current Condition Current Condition Evaluation Date 03/31/22 Treatment Diagnosis pneumonia, anemia, s/p R TKA; difficulty in walking Onset Date 03/17/22 M3 PT-IP Subjective Start: 03/30/22 08:21 Freq: NEEDED Status: Active Protocol: Document 03/31/22 09:15 AW (Rec: 03/31/22 09:52 AW [id number]) Subjective Physical Therapy Visit Type Type Initial Evaluation Visit Start Time 08:55 Visit Stop Time 09:15 Total Visit Minutes 20 Notes H&H improved to 8.5/26.0 after second transfusion. Number of QUALITY INTERN Visits 0 Physical Therapy Visit Comments Patient Comments Pt is willing to participate with PT Patient Goals Return home and begin outpatient PT M4 PT-IP Mobility and Gait Start: 03/30/22 08:21 Freq: NEEDED Status: Active Protocol: Document 03/31/22 09:15 AW (Rec: 03/31/22 09:52 AW [id number]) PT-Bed Mobility Assessment Supine to Sit Supine to Sit Independent PT-Transfer Assessment Sit to and From Stand Sit to and from Stand Standby Assistance Equipment Transfer Assistive Device Gait Belt,Straight Cane Orthotic/Prosthetic Devices or Brace: No Transfers Transfer Destination Chair Transfer Technique ambulated with SPC Transfer Ability Level of Assist Standby Assistance Comments Mobility Comments Pt was lying in the bed as PT arrived. He sat up EOB and stood SBA. With SPC, he ambulated 160 feet SBA and completed stair assessment. He returned to the room and sat on the chair, wincing with reported 7/10 pain. Gait Assessment Gait Gait Assistance Required: Standby Assistance Distance (Feet) 160 Able to Maintain Weight Bearing Status Yes During Gait Assistive Devices Assistive Device Gait Belt,Straight Cane Orthotic/Prosthetic Devices or Brace: No Gait Deviations General Gait Pattern Antalgic,Decreased Stride Length,Decreased Feet Clearance,Lateral Trunk Lean, Step-to Gait Factors Limiting Gait Function Factors Limiting Gait Function Decreased Strength,Limited Range of Motion,Pain,Poor Balance Comments Gait Comments Pt tended to vault on RLE. Gait was antalgic but without evidence of imbalance. Stair Climbing Assessment Evaluation Level of Assist On Stairs Standby Assistance Devices Stair Climbing Assistive Devices Straight Cane,Right Railing Technique/Endurance Stair Climbing Direction Ascend and Descend Stair Climbing Technique Step to Step Number of Steps Climbed 10 Query Text: Stair Climbing Set # Repetitions (reps) 1 Comments Stair Climbing Comments Pt climbed ICU stairs SBA with step-to pattern, no need for cues. PT-Balance Assessment Sitting Balance and Reactions Static Sitting Balance Ability Normal Dynamic Sitting Balance Ability Normal Standing Balance and Reactions Static Standing Balance Ability Good Dynamic Standing Balance Ability Fair Device Used SPC M5 PT-IP Objective Assessments Start: 03/30/22 08:21 Freq: NEEDED Status: Active Protocol: Document 03/31/22 09:15 AW (Rec: 03/31/22 09:52 AW [id number]) Orientation Orientation/Cognition Level of Alertness Alert Orientation Name,Day of Week,Place, Situation Language Function Ability No Deficits Noted Safety Awareness Understands Safety Issues Gross Range of Motion Lower Extremity ROM Assessment Right Impaired Impairments R knee ~2-90 Strength Lower Extremity Strength Assessment Right Impaired Hip 4/5 Knee 3+/5 Ankle 4/5 Comments Strength Comments LLE grossly 5/5 Sensation Assessment Sensation Gross Sensation WNL M6 PT-IP Treatment Start: 03/30/22 08:21 Freq: NEEDED Status: Active Protocol: Document 03/31/22 09:15 AW (Rec: 03/31/22 09:52 AW [id number]) Physical Therapy Treatment Exercises Exercises Quad Sets,Heel Slides,Straight Leg Raises,Seated Knee Flexion/Extension Education Education Provided Weight Bearing Status,Safety Other Treatments Other Treatment Performed Educated pt on importance of ROM focus in early phase of rehab. Encouraged pt to continue heel slides and seated knee flexion at least twice daily. M7 PT-IP Assessment and Plan Start: 03/30/22 08:21 Freq: NEEDED Status: Active Protocol: Document 03/31/22 09:15 AW (Rec: 03/31/22 09:52 AW [id number]) PT Summary Assessment and Plan Potential Rehabilitation Potential Good Status of Condition at Evaluation Evolving Summary Impairments Pain,ROM,Strength,Balance, Transfers,Gait Assessment Summary Lefty is a 46 yo man who underwent R TKA on 03/17/22. He is admitted with pneumonia and anemia. He is independent in all regards at baseline. He required no more than SBA for all mobilities using SPC at this assessment. Pt will be safe to discharge home with assist and outpatient PT once medically stable. Goals Bed Mobility Goal Independent Transfer Goal Independent,Cane Gait Goal Independent,Cane Gait Distance 250 Other Goals - up/down 10 steps with unilateral rail and SPC IND Days to Meet Goals 3 Frequency of Treatment Frequency Of Treatment Once a Day Treatment Plan Physical Therapy Treatment Plan Transfer Training,Gait Training,Therapeutic Exercise, Balance Retraining,Post Op Education,Discharge Planning, Hot or Cold Pack,Neuromuscular Re-ed,Manual Therapy Weight Bearing Status Weight Bearing Status Weight Bear as Tolerated Allowed Weight Bearing Amount (enter % WBAT RLE or #) (%) Recommendations To Nursing Amount of Assist Needed Standby Assistance Discharge Recommendations PT Discharge Recommendations Home,Outpatient PT Transportation Needs at Discharge Private Vehicle
[2022-03-31] MEDS: TIZANIDINE 4 MG TABLET PO (10:24)
[2022-03-31] MEDS: ACETAMINOPHEN 325 MG TABLET 650 MG PO (10:24)
[2022-03-31 12:00] VITALS: BP 107/55; PULSE 64; RESP 18; TEMP 36.8; O2SAT 96
[2022-03-31] MEDS: POTASSIUM CHLORIDE 20 MEQ TAB 40 MEQ PO (13:01)
--- NOTE | 2022-03-31 15:19 | P.DS_ITS ---
History of Present Illness History of Present Illness Chief complaint: SOB, anemia, Poss PE- ref by Inga Danielle Narrative: 46-year-old gentleman with class 1 obesity status post prior bariatric surgery, previous C3 through 7 laminectomy/fusion for spinal cord injury, complicated by postop fungal infection now on daily suppressive fluconazole therapy, underwent right TKA on March 17 at an outpatient surgery center presented to the emergency department today complaining of right leg pain, swelling, fatigue, and shortness of breath over the last 2 weeks. He reports that on postoperative day 0, he did develop a fever to 102.8?.? He received Tylenol with improvement down to 101?.? Due to her previous gastric bypass, he cannot take aspirin, therefore his orthopedic surgeon recommended Xarelto.? He states he has previously used Lovenox postoperatively.? He has had significant pain, swelling, and warmth to the knee since surgery.? He was seen at the [facility] emergency department on March 19.? He was given IV antibiotics there and given oral Keflex prescription at discharge.? They did perform a duplex ultrasound ruled out DVT at that time.? Patient subsequently followed up with his Orthopedic surgeon Dr. Danielle on March 27.? At time, she performed a joint aspiration.? She refilled the Keflex and encouraged him to continue taking the antibiotics.? Cultures have remained negative.? At t he time of that visit, she recommended discontinuation of the Xarelto.? At this point, his last dose was on ThursdayMarch 26.? When he was seen in her office, there was concern about his symptomatic anemia and potential need for transfusion.? Patient and also questioned whether he could have fungal infection in the knee joint given his previous history of fungal infection in his spine hardware.? Dr. Danielle was evidently going to look into some additional fungal testing, but they are uncertain if anything was accomplished.? He returned to the emergency department today due to progressive shortness of breath, concern for pulmonary embolus, and anemia. Prior to surgery, hemoglobin was 11.5.? On March 19 that had decreased to 8.5.? Today it was down to 7.1.? Platelet count has increased from 342 on March 19 to 817 today.? Patient reports he has had progressive fatigue, weakness, and lightheadedness.? His knee has remained extremely painful which has limited his ability to mobilize.? He and his report he has had fevers since surgery ranging from 99.6-101.? Patient notes that his knee is about the same as it was a week ago.? He denies any worsening pain, erythema, induration.? reports his temperature was 101? today. With regard to anemia, he did require prior transfusion at [facility] in [place] in 2020.? Was felt at that time his anemia was related to his prior gastric bypass.? Upper endoscopy was negative but they had an inadequate prep for colonoscopy.? He was guaiac negative at that time.? He was also guaiac- negative in the emergency department today.? He denies any black or tarry stools.? He has not had any chest pain, nausea, vomiting, abdominal pain.? He has been having some loose stools. Leading up to surgery, patient states he has had bilateral knee pain for years.? He was having falls prior to surgery which was putting his cervical spine at risk.? Ultimately, the decision was made to pursue knee replacement secondary to his instability issues in pain. Discharge Providers Provider Date of admission: 03/30/22 10:02 Discharge Date: 03/31/22 Primary care physician: Charlie Ward MD Consults: 03/29/22 17:57 Consult to Physical Therapy Evaluate & Treat Comment: Recent RTKA Physician Instructions: Evaluate and Treat Discharge provider: Eleazar Ruiz DO Summary Hospital Course Discharge Diagnosis: 1. Acute on chronic anemia Hemoglobin 7.3. He remains quite pale, fatigued, dyspneic.? Source likely hemarthrosis on top of prior gastric bypass and nutritional deficiencies due to absorption issues.? Following 1 unit PRBC, repeat Hgb 8.5 and stable. Patient felt alot better following blood transfusion. -MCV 75 indicating chronic iron deficiency, guiaic negative in ED -patient has referral to hematology already as outpatient, will likely require ongoing IV infusions 2. Postop from right total knee arthroplasty, complicated by probable hemarthrosis Septic arthritis rule out with negative aspiration culture. Continue ice and elevation.? Physical therapy was consulted and consult recommending outpatient PT.? Appreciate consult per Dr. Rodney gerardo. -Given bleeding in knee, ortho elected to avoid DVT prophylaxis as risk outweighs benefit 3. Multifocal pneumonia Per CT chest. Patient notes mild cough but no fevers. Will initiate patient on Rocephin and doxycycline (azithromycin has potential QT prolongation in combination with fluconazole which he takes chronically).?? -Apparently his children had viral illness last week -Given multifocal nature of PNA likely viral, but will cover for atypical pneumonia with po doxy and augmentin on discharge 4. Thrombocytosis Platelet count is mildly improved today.? Will monitor. 5. Pre diabetes Hemoglobin A1c was 6.4%.? Patient is aware he needs outpatient follow-up. 6. Dark stools Previously had an EGD last year which was negative, stool was guaiac negative at that time.? He had incomplete colonoscopy prep so was not able to have a full colonoscopy.? Negative stool guaiac in the ED yesterday. 7. Fevers Likely secondary to multifocal pneumonia.? Unlikely to be septic arthritis, cultures are negative to date. 8. Chronic fungal infection of C-spine hardware Continue chronic suppressive fluconazole 9. Class 1 obesity BMI is 32.2. Hospital Course: 46-year-old gentleman with class 1 obesity status post prior bariatric surgery, previous C3 through 7 laminectomy/fusion for spinal cord injury, complicated by postop fungal infection now on daily suppressive fluconazole therapy, underwent right TKA on March 17 at an outpatient surgery center presented to the emergency department yesterday complaining of right leg pain, swelling, fatigue, and shortness of breath over the last 2 weeks. He was admitted for symptomatic anemia and transfusion.? Orthopedic surgery evaluated and felt that he does have clinical signs of hemarthrosis but no evidence of septic arthritis.? No further intervention was recommended, as patient declined a joint aspiration for comfort.? CT PE was done secondary to his dyspnea and was negative for pulmonary embolus but did reveal multifocal pneumonia. Started on rocephin and doxy and discharged on po doxy and augmentin. Hgb following transfusion improved at 8.5 and patient felt much better. He has referral for outpatient hematology already. Ortho recommended against DVT prophylaxis given probable hemarthrosis. Exam Vital Signs (past 8 hours): - 03/31/22 07:32 03/31/22 12:00 Temperature 98.4 F 98.2 F Pulse Rate 82 64 Respiratory Rate 18 18 Blood Pressure 138/75 107/55 L Pulse Oximetry 96 96 Oxygen Flow Rate 0 0 Oxygen Delivery Method Room Air Oxygen Flow Rate 0 Narrative Exam Narrative: GEN: Alert and oriented x 3, NAD HEENT:NC, Face symmetric is quite pale CHEST: Respiratory excursions symmetric, coarse with faint rhonchi in the right lower lobe CV: RRR, no M/R/G ABD: Soft, NT/ND, BT present in all 4 quadrants, body habitus limits exam EXTR: warm, well perfused, no C/C, somewhat decreased swelling noted to the right lower extremity/knee SKIN: warm and dry, no rash NEURO: Alert and oriented x 3, nonfocal Objective Labs Result Diagrams: 03/31/22 05:03 03/31/22 05:03 Labs: Laboratory Results - last 24 hr 03/29/22 03/31/22 03/31/22 14:54 05:03 05:03 WBC 8.3 RBC 3.44 L Hgb 8.5 L Hct 26.0 L MCV 75.5 L MCH 24.7 L MCHC 32.7 RDW 16.7 H Plt Count 823 H Neut % (Auto) 67.3 Lymph % (Auto) 22.8 L [place] % (Auto) 7.2 Eos % (Auto) 1.8 L Baso % (Auto) 0.9 Neut # (Auto) 5600 Lymph # (Auto) 1900 [place] # (Auto) 600 Eos # (Auto) 100 Baso # (Auto) 100 Platelet Estimate Increased on smear RBC Morphology See below Polychromasia 1+ H Hypochromasia 1+ H Anisocytosis 1+ H Microcytosis 1+ H Sodium 144 Potassium 3.4 Chloride 105 Carbon Dioxide 31 BUN 7 L Creatinine 0.85 Estimated GFR > 60 BUN/Creatinine Ratio 8.2 Glucose 105 H Calcium 8.6 Magnesium Crossmatch See Detail 03/31/22 05:03 WBC RBC Hgb Hct MCV MCH MCHC RDW Plt Count Neut % (Auto) Lymph % (Auto) [place] % (Auto) Eos % (Auto) Baso % (Auto) Neut # (Auto) Lymph # (Auto) [place] # (Auto) Eos # (Auto) Baso # (Auto) Platelet Estimate RBC Morphology Polychromasia Hypochromasia Anisocytosis Microcytosis Sodium Potassium Chloride Carbon Dioxide BUN Creatinine Estimated GFR BUN/Creatinine Ratio Glucose Calcium Magnesium 2.5 H Crossmatch [facility] Medical History Chronic anemia Osteoarthritis Prediabetes Surgical History Gastric bypass status for obesity History of arthroplasty of knee Social History marital status: household members: spouse Smoking Status: Never smoker alcohol intake: never Discharge Plan Discharge Plan Patient Disposition: Home Provider Discharge Comment: You were admitted for bleeding into your right knee and acute anemia. Your blood counts improved with a blood transfusion. I'm glad you are going to see hematology since you likely have iron deficiency and will need routine iron infusions after your gastric bypass. Ortho said you should not be on blood thinners because of the bleeding issue in your knee, but this puts you at higher risk of developing a DVT which is a clot in your leg. So try to be active and not sit in one place for too long to prevent a clot. Elevating your leg can also help. Your chest scan happened to show a pneumonia so I'm sending you home on 4 more days of oral antibiotics for this. Please f/u with ortho in clinic in 2 weeks. Discharge orders & Medications Prescriptions: New doxycycline monohydrate 100 mg tablet 100 mg PO BID 4 Days Qty: 8 0RF amoxicillin-pot clavulanate 875-125 mg tablet 1 tab PO BID 4 Days Qty: 8 0RF Continued clonazepam 1 mg tablet 0.5 mg PO DAILY PRN (Reason: Anxiety) Label Comments: TAKE 1/2 TABLET BY MOUTH DAILY NEEDED FOR ANXIETY AND 2 TABLETS AT BEDTIME NEEDED FOR ANXIETY/INSOMNIA mirtazapine 30 mg tablet 30 mg PO DAILY Label Comments: TAKE ONE TABLET BY MOUTH EVERY EVENING quetiapine 25 mg tablet 25 mg PO BEDTIME Label Comments: Take 1 tablet by mouth at bedtime paroxetine HCl 40 mg tablet 60 mg PO DAILY Label Comments: TAKE ONE AND ONE-HALF TABLET BY MOUTH DAILY lamotrigine 100 mg tablet 250 mg PO DAILY Label Comments: TAKE 2 1/2 TABLETS BY MOUTH ONCE DAILY. fluconazole 100 mg tablet 200 mg PO DAILY baclofen 20 mg tablet 20 mg PO QID tizanidine 4 mg capsule 4 mg PO Q6HR PRN (Reason: Pain (Scale Score 1-3)) pantoprazole 20 mg Tablet,Delayed Release (Dr/Ec) 20 mg PO DAILY tamsulosin [Flomax] 0.4 mg Capsule 0.4 mg PO DAILY furosemide [Lasix] 40 mg Tablet 60 mg PO QAM pregabalin 100 mg Capsule 100 mg PO TID Follow up/Referrals: Savannah Solares MD [Physician] - 2 Weeks Charlie aWrd MD [Primary Care Provider] - Diet/Activity/Treatments Diet: Diet as Tolerated Discharge Data Primary Care Provider: Charlie Ward Quality VTE Deep Vein Thrombosis/Pulmonary Embolism Present on Admission: No
--- NOTE | 2022-03-31 15:35 | CM.DPC ---
DCP Discharge Home Per MD, pt is medically stable to d/c home today with no identified barriers to discharge. Per PT/OT, recommending safe d/c home with outpt PT. Pt already established with outpt PT and no concerns at this time. Plan: Patient to d/c home back to [place] today via spouse POV and outpt PT follow up. No further SW needs at this time. BENJIE Jones
--- NOTE | 2022-03-31 17:17 | PC.NURSE ---
Event Note Patient discharge by sofiya Rodriguez.
== END 2022-03-31 16:00 | disposition home or self-care (01) | DRG 811 ==
LOC: ED 17:21 → AC 17:57
PROVIDERS: Emergency Medicine; Student in an Organized Health Care Education/Training Program; Admitting Provider Family Medicine; Emergency Provider Registered Nurse; PCP Family Medicine; Referring Provider Orthopaedic Surgery; Visit Provider Family Medicine
DX: D62 Acute posthemorrhagic anemia (principal); J18.9 Pneumonia, unspecified organism; M25.061 Hemarthrosis, right knee; T84.83XA Hemorrhage due to internal orthopedic prosthetic devices, implants and grafts, initial encounter; T84.63XA Infection and inflammatory reaction due to internal fixation device of spine, initial encounter; K91.2 Postsurgical malabsorption, not elsewhere classified; K95.89 Other complications of other bariatric procedure; B48.8 Other specified mycoses; D75.839 Thrombocytosis, unspecified; R73.03 Prediabetes; F41.9 Anxiety disorder, unspecified; Z20.822 Contact with and (suspected) exposure to COVID-19
CPT/HCPCS: 36415; 36430; 71045; 71275; 80048; 80053; 81001; 82550; 83605; 83690; 83735; 83880; 84145; 84484; 85007; 85025; 85610; 85730; 86850; 86900; 86901; 87040; 87086; 87635; 93005; 93971; 96374; 97162; 99284; C9803; G0378; P9016; J0696; J1170; Q9967